=== PATIENT | male | born 1945 | race Caucasian/White ===

== ENCOUNTER → 2017-03-24 | Outpatient (CLI) | payer OTHER ==
[~2017-03-24] MED LIST: ALLO100T PO; BIOT1CAP3 PO; CHOL100010 PO; CLOP1TAB5 PO; SIMV20TA5 PO; TERA5CAP PO
[2017-03-24 12:26] LABS: BASO % 0.6 %; BASO ABS # 0.02 K/uL (0-0.2); COMPLETE YES; EOS % 3.7 %; HEMATOCRIT 39.1 % (42-52); LYMPH % 16.1 %; LYMPH ABS # 0.57 K/uL (1.2-3.4); MEAN CELL VOLUME 95.6 fL (80-100); MEAN CORPUSCULAR HEMOGLOBIN 31.5 pg (25-34); MEAN PLATELET VOLUME 9.7 fL (7.4-10.4); MONO % 9.9 %; NEUT % 69.7 %; PLATELET COUNT 213 K/uL (130-400); RED BLOOD COUNT 4.09 M/uL (4.7-6.1); WHITE BLOOD COUNT 3.55 K/uL (4.8-10.8)
[2017-03-24 13:01] LABS: BLOOD UREA NITROGEN 12 mg/dl (7-18); CALCIUM 8.7 mg/dl (8.5-10.1); CARBON DIOXIDE 32 mmol/L (21-32); CHLORIDE 110 mmol/L (98-107); CREATININE 0.74 mg/dl (0.60-1.40); GLUCOSE 83 mg/dl (70-99); POTASSIUM 4.4 mmol/L (3.5-5.1); SODIUM 144 mmol/L (136-145)
[2017-03-24 13:23] LABS: CHOLESTEROL 134 mg/dl (0-200); CHOLESTEROL/HDL RATIO 2.1; FERRITIN 32.4 ng/ml (8.0-388.0); HDL CHOLESTEROL 65 mg/dl; LDL CHOLESTEROL CALCULATED 61 mg/dl; TOTAL IRON BINDING CAPACITY 302 mcg/dl (250-450); TRIGLYCERIDES 40 mg/dl (0-150); VERY LOW DENSITY LIPOPROT CALC 8 mg/dl
== END | disposition home or self-care (01) ==
LOC: C.LAB 10:21
PROVIDERS: ATTEND Internal Medicine
DX: I73.9 Peripheral vascular disease, unspecified (principal); D64.9 Anemia, unspecified

== ENCOUNTER → 2017-08-27 | Outpatient (CLI) | payer OTHER ==
[2017-08-27 09:40] LABS: HEMATOCRIT 39.5 % (42-52); MEAN CELL VOLUME 95.4 fL (80-100); MEAN CORPUSCULAR HEMOGLOBIN 31.4 pg (25-34); MEAN CORPUSCULAR HGB CONC 32.9 g/dl (32-36); MEAN PLATELET VOLUME 9.8 fL (7.4-10.4); PLATELET COUNT 200 K/uL (130-400); RED BLOOD COUNT 4.14 M/uL (4.7-6.1); WHITE BLOOD COUNT 3.88 K/uL (4.8-10.8)
[2017-08-27 10:06] LABS: ALT/SGPT 23 U/L (12-78); AST/SGOT 18 U/L (15-37); BLOOD UREA NITROGEN 15 mg/dl (7-18); BUN/CREATININE RATIO 22.2 (10-20); CALCIUM 8.6 mg/dl (8.5-10.1); CARBON DIOXIDE 29 mmol/L (21-32); CHLORIDE 109 mmol/L (98-107); CHOLESTEROL 129 mg/dl (0-200); CREATININE 0.65 mg/dl (0.60-1.40); GLUCOSE 89 mg/dl (70-99); POTASSIUM 4.4 mmol/L (3.5-5.1); SODIUM 142 mmol/L (136-145); TRIGLYCERIDES 34 mg/dl (0-150); URIC ACID 4.8 mg/dl (2.6-7.2); VERY LOW DENSITY LIPOPROT CALC 7 mg/dl
[2017-08-27 10:11] LABS: CHOLESTEROL/HDL RATIO 2.2; HDL CHOLESTEROL 59 mg/dl; LDL CHOLESTEROL CALCULATED 63 mg/dl
== END | disposition home or self-care (01) ==
LOC: C.LAB 08:44
PROVIDERS: ATTEND Internal Medicine
DX: D64.9 Anemia, unspecified (principal); E78.5 Hyperlipidemia, unspecified; I10 Essential (primary) hypertension; M10.9 Gout, unspecified; N40.0 Benign prostatic hyperplasia without lower urinary tract symptoms

== ENCOUNTER → 2018-02-15 | Outpatient (CLI) | payer OTHER ==
[2018-02-15 09:40] LABS: HEMATOCRIT 40.3 % (42-52); HEMOGLOBIN 13.6 g/dL (14.0-18.0); MEAN CELL VOLUME 94.4 fL (80-100); MEAN CORPUSCULAR HEMOGLOBIN 31.9 pg (25-34); MEAN CORPUSCULAR HGB CONC 33.7 g/dl (32-36); MEAN PLATELET VOLUME 9.5 fL (7.4-10.4); PLATELET COUNT 194 K/uL (130-400); RED CELL DISTRIBUTION WIDTH CV 13.1 % (11.5-14.5); RED CELL DISTRIBUTION WIDTH SD 45.2 fL (36.4-46.3); WHITE BLOOD COUNT 3.86 K/uL (4.8-10.8)
[2018-02-15 10:24] LABS: ALT/SGPT 23 U/L (12-78); AST/SGOT 17 U/L (15-37); BLOOD UREA NITROGEN 17 mg/dl (7-18); CALCIUM 8.7 mg/dl (8.5-10.1); CARBON DIOXIDE 28 mmol/L (21-32); CREATININE 0.78 mg/dl (0.60-1.40); GLUCOSE 88 mg/dl (70-99); POTASSIUM 4.1 mmol/L (3.5-5.1); SODIUM 142 mmol/L (136-145); URIC ACID 5.2 mg/dl (2.6-7.2)
[2018-02-15 10:29] LABS: CHOLESTEROL 136 mg/dl (0-200); LDL CHOLESTEROL CALCULATED 73 mg/dl
== END | disposition home or self-care (01) ==
LOC: C.LAB 09:11
PROVIDERS: ATTEND Internal Medicine
DX: E78.5 Hyperlipidemia, unspecified (principal); I10 Essential (primary) hypertension; M10.9 Gout, unspecified; D64.9 Anemia, unspecified

== ENCOUNTER 2019-10-28 16:29 | Inpatient (IN) ==
[2019-10-28] MEDS ORDERED: fentaNYL citrate 100 MCG/2 ML VIAL IV STA ×4 (17:08→18:07)
--- NOTE | 2019-10-28 17:17 | XRay Report ---
XR ankle LT min 3V routine, XR foot LT min 3V routine HISTORY: 73 years-old Male trauma acute left foot and ankle pain status post trauma COMPARISON: None available TECHNIQUE: 3 views of the left foot and 3 views of the left ankle FINDINGS: ANKLE: Acute fracture dislocation of the ankle. Obliquely oriented fracture of the distal ulna extends to th e level of the tibial plafond demonstrated medial displacement of the proximal fracture of approximat cristofer 5 mm. There is pathologic widening of the medial clear space of the ankle, 1.4 cm with adjacent 4 mm bone fragment suggestive of avulsion. Osteoarthritis of the tibiotalar joint. No acute talar frac ture identified. Moderate soft tissue swelling of the ankle with joint effusion. Large spurring of th e calcaneus. Arterial calcifications are noted. FOOT: Demineralized appearance the bones with mild to moderate multifocal osteoarthritis. Mild hallux valgu s deformity of the first MTP joint. Flexion of the interphalangeal joints with extension of the metat arsal-phalangeal joints limits the study. Arterial calcifications are noted. No definite acute fractu re or dislocation identified. IMPRESSION: 1. Acute fracture dislocation of the ankle as above with soft tissue swelling and joint effusion. 2. No acute fracture or dislocation of the left foot identified. ACT 112: Negative or not required by law. The above report was generated using voice recognition software. It may contain grammatical, syntax o r spelling errors. Electronically signed by: Jose Alfredo Valentine M.D. 10/28/2019 5:16 PM
--- NOTE | 2019-10-28 17:41 | Emergency Department Note ---
ED Provider Note CHIEF COMPLAINT: Ankle pain HISTORY OF PRESENT ILLNESS: This 73-year-old male patient presents to the emergency department via EMS after sustaining an injury to the left ankle and foot with a twisting, inversion motion prior to arrival. Patient states that he was walking down a hill and slipped on some ice, fell to the side twisting his a nkle and he heard a "crack." He has been unable to put any weight on the ankle or foot since the injury. The ambulance crew did stabilize the ankle and route. The patient complains of pain throughout the entire ankle. The patient does not complain of any pain of the foot. The patient rates the pain as throbbing and 7/10. The patient denies any previous fracture or other injury to this foot or ankle. He denies any knee pain or hip pain. He takes Plavix. He denies hitting his head or loss of consciousness and denies any other injuries from the fall. The pain is worse with any movement of the leg or foot. He is able to move his toes and denies any numbness or tingling in the foot. He denies any lacerations or abrasions to the foot or ankle. He was not given anything for pain prior to arrival. He denies any headaches, neck pain, chest pain, shortness of breath, back pain, abdominal pain, nausea or vomiting. REVIEW OF SYSTEMS: A complete 10 point review of systems was reviewed with the patient with pertinent positives and negatives as per history of present illness. All else were negative. ALLERGIES: Reviewed in chart MEDICATIONS: Reviewed in chart and with the patient PMH: Peripheral artery disease/peripheral vascular disease, hypertension, hyperlipidemia SOCIAL HISTORY: Lives at home with his , he denies tobacco use PHYSICAL EXAM: Vital Signs: Reviewed Nurse's notes, vital signs stable. CONSTITUTIONAL: Pleasant and cooperative. No acute distress. Well appearing and well nourished. HEENT: Normocephalic, atraumatic. PERRL, EOMI. TMs normal. Pharynx normal. NECK: Supple, full active range of motion without discomfort. No midline tenderness to palpation of the cervical spine. RESPIRATORY: Clear to auscultation bilaterally with no wheezing, crackles, rhonchi or stridor. Equal expansion bilaterally. CARDIOVASCULAR: Regular rate and rhythm with no murmurs, rubs or gallops. Normal peripheral perfusion, 2+ pulses in all 4 extremities. No peripheral edema. GASTROINTESTINAL: Soft, nontender, nondistended. No rebound tenderness or guarding. No palpable masses or HSM. Bowel sounds present in all quadrants. No CVA tenderness bilaterally. MUSCULOSKELETAL: The left ankle is moderately and circumferentially swollen, tender over both the lateral and medial malleolus, with obvious bony deformity on the medial aspect of the ankle. There is tension of the skin, but no tenting, no abrasions or lacerations noted. There is fifth metatarsal tenderness. There is no tenderness over the rest of the foot. There is no calf or proximal tibia/fibular tenderness. The foot and toes are warm and well- perfused. Dorsalis pedis and posterior tibialis pulses 2+. Sensation to pain and light touch is intact. Capillary refill less than 2 seconds. Patient is able to move his toes without difficulty. INTEGUMENTARY: No rash or other significant dermatologic conditions noted. NEUROLOGIC: Alert and oriented X 4 with normal affect. Normal strength and sensation in all 4 extremities. Normal speech. Normal gait observed. IMAGING: XR ankle LT min 3V routine, XR foot LT min 3V routine HISTORY: 73 years-old Male trauma acute left foot and ankle pain status post trauma COMPARISON: None available TECHNIQUE: 3 views of the left foot and 3 views of the left ankle FINDINGS: ANKLE: Acute fracture dislocation of the ankle. Obliquely oriented fracture of the distal ulna extends to the level of the tibial plafond demonstrated medial displacement of the proximal fracture of approximately 5 mm. There is pathologic widening of the medial clear space of the ankle, 1.4 cm with adjacent 4 mm bone fragment suggestive of avulsion. Osteoarthritis of the tibiotalar joint. No acute talar fracture identified. Moderate soft tissue swelling of the ankle with joint effusion. Large spurring of the calcaneus. Arterial calcifications are noted. FOOT: Demineralized appearance the bones with mild to moderate multifocal osteoarthritis. Mild hallux valgus deformity of the first MTP joint. Flexion of the interphalangeal joints with extension of the metatarsal-phalangeal joints limits the study. Arterial calcifications are noted. No definite acute fracture or dislocation identified. IMPRESSION: 1. Acute fracture dislocation of the ankle as above with soft tissue swelling and joint effusion. 2. No acute fracture or dislocation of the left foot identified. ----- XR ankle LT 2V CLINICAL HISTORY: 73 years-old Male presenting with post reduction. TECHNIQUE: Frontal and lateral views of the left ankle were obtained. COMPARISON: 10/28/2019 at 4:48 PM. FINDINGS: Interval placement of a fiberglass splint, which mildly obscures underlying os seous detail. Redemonstration of the fracture dislocation of the ankle mortise with obliquely oriented fracture of the distal fibula at the level of the syndesmosis extending from the posterior cortex proximally to the anterior cortex distally, posterior malleolar fracture, and medial ligamentous di sruption. Medial clear space widening of 10 mm is decreased from prior, previously 14 mm. Mild displacement of the distal fibular fracture fragment is similar to prior. There is greater diastases of the distal fibular fracture plane on the current exam, which was previously minimal. There is also slightly increased displacement of the posterior malleolar fracture. Decreased widening at the anterior tibiotalar articulation. Prominent enthesophytes at the insertion of the Achilles tendon and origin of the plantar fascia. Diffuse soft tissue swelling. Atherosclerosis. IMPRESSION: 1. Decreased widening of the medial clear space and anterior tibiotalar articulation. However, increased diastases at the distal fibular fracture plane and mild displacement of the posterior malleolar fracture. PROCEDURE NOTE: Left ankle reduction Verbal consent was obtained from the patient to perform the procedure. The left foot is neurovascularly intact prior to reduction attempts. The left ankle joint was reduced by myself by applying distal traction on the ankle joint with countertraction, and gentle lateral pressure. The ankle joint easily reduces, but also easily moves out of place as soon as any pressure is removed, concerning for an unstable fracture/dislocation. Patient continues to be able to move his toes after the reduction attempt. Neurovascular status was rechecked and remains intact. A stirrup Ortho-Glass splint was placed to stabilize the ankle. Post-reduction X-ray was reviewed by myself at bedside, noting some improvement in the alignment of the ankle joint, but worsening alignment of the distal fibula fracture. Pt tolerated the procedure well with no known complications. EMERGENCY DEPARTMENT COURSE: I examined the patient. Differential diagnosis includes ankle fracture, dislocation, contusion, hematoma, sprain/strain, among others. The patient was given IV fentanyl for pain. X-rays of the left foot and ankle were reviewed by myself at bedside and were also read by radiology as above and reveal an acute fracture and dislocation of the left ankle. The pham ent was discussed with Dr. Philip, who also evaluated the patient and agrees with my assessment, plan, and disposition. I discussed the option of sedation with the patient, he prefers to avoid this. His pain has been adequately controlled with IV fentanyl. A reduction attempt was performed as above, however I am concerned for an unstable fracture/dislocation, and was unable to obtain good reduction myself. I spoke on the phone with Dr. Hanson, orthopedic surgery, who agrees to evaluate the patient and is performing reduction at the bedside. Please see his note for further details. After evaluation by Dr. Hanson, decision was made that the patient should be admitted with plans for OR tomorrow. Dr. [facility] was also consulted on the patient. The patient was updated on the plan for admission and surgery, he was agreeable to this plan. His pain is adequately controlled at this time. He was stable at time of admission. Medication Reconciliation: I attest that I have personally reviewed the patient's current medication list. Blood pressure screening: The patient was found to have an elevated blood pressure, which was felt to be situational. The chart was completed utilizing [employer] Speech voice recognition software. Grammatical errors, random word insertions, pronoun errors, and incomplete sentences are an occasional consequence of this system due to software limitations, ambient noise, and hardware issues. Any formal questions or concerns about the content, text, or information contained within the body of this dictation should be directly addressed to the nurse practitioner for clarification. Impression & Plan Closed left ankle fracture Past Med/Surg History Medical History Cardiac murmur Closed left ankle fracture History of colon polyps Hyperlipidemia Hypertension On anticoagulant therapy on plavix PAD (peripheral artery disease) Sleep apnea cpap Surgical History History of angioplasty left SFA (per record from [facility]) History of colonoscopy History of esophagogastroduodenoscopy (EGD) History of tooth extraction wisdom teeth Status post femoral-popliteal bypass surgery 2013 bilateral @ [place] Family History Mother Family hx of colon cancer Lung disease Colon cancer Brother Diabetes Father Myocardial infarction Aunt Myocardial infarction Uncle Myocardial infarction Social History Preferred Language: Korean Communication Ability: Effective Platform Worker Required: No Beliefs That Will Affect Care: None marital status: Current Living Situation: Spouse current occupational status: employed Feels Safe at Home: Yes Smoking Status: Former smoker Second Hand Exposure: No ; Hx Alcohol Use: Yes Alcohol type: beer Hx Substance Use: No Seatbelt Use: always Results & Data Vital Signs Vital Signs - 24 hr 10/28/19 16:35 10/28/19 17:39 Temperature 36.8 C Temperature Source Oral Pulse Rate 86 Pulse Rate [Left Finger] 80 Pulse Rhythm Regular Pulse Strength Normal Respiratory Rate 24 18 Respiratory Effort / Characteristics Non-Labored Respiratory Depth Normal Respiratory Pattern Regular Blood Pressure 203/98 H Blood Pressure [Right Arm] 183/106 H Blood Pressure Mean 133 Blood Pressure Mean [Right Arm] 131 Blood Pressure Position Lying Pulse Oximetry 99 96 Oxygen Delivery Method Room Air Room Air Sepsis Recent Fever Within 48 Hours No Sepsis Action Taken by Nursing No Action Required Laboratory Data Result diagrams: 10/28/19 17:03 10/28/19 17:03 Lab Results 10/28/19 10/28/19 Range/Units 17:03 17:03 WBC 4.85 (4.8-10.8) K/uL RBC 4.39 L (4.7-6.1) M/uL Hgb 13.8 L (14.0-18.0) g/dL Hct 41.8 L (42-52) % MCV 95.2 (80-100) fL MCH 31.4 (25-34) pg MCHC 33.0 (32-36) g/dL RDW Std Deviation 46.8 H (36.4-46.3) fL RDW Coeff of Cesario 13.4 (11.5-14.5) % Plt Count 215 (130-400) K/uL MPV 9.8 (7.4-10.4) fL Sodium 141 (136-145) mmol/L Potassium 4.2 (3.5-5.1) mmol/L Chloride 110 H (98-107) mmol/L Carbon Dioxide 32 (21-32) mmol/L Anion Gap -1.0 L (3-11) BUN 16 (7-18) mg/dl Creatinine 0.86 (0.6-1.4) mg/dl Est Cr Clr Drug Dosing 84.4 ml/min Est GFR ( Amer) 98.3 Est GFR (Non-Af Amer) 84.8 BUN/Creatinine Ratio 19.0 (10-20) Glucose 96 (70-99) mg/dl Calcium 8.7 (8.5-10.1) mg/dl Administered Medications Docusate Sodium (Colace) 100 mg PO BID ERYN Stop: 11/27/19 20:59 Last Admin: 10/28/19 21:25 Dose: 100 mg Documented by: [id number] Simvastatin (Zocor) 10 mg PO PM ERYN Stop: 11/27/19 20:59 Last Admin: 10/28/19 21:26 Dose: 10 mg Documented by: [id number] Terazosin HCl (Hytrin) 5 mg PO QPM ERYN Stop: 11/27/19 20:59 Last Admin: 10/28/19 21:26 Dose: 5 mg Documented by: [id number] Vitamin D (Vitamin D3) 1,000 units PO BID ERYN Stop: 11/27/19 20:59 Last Admin: 10/28/19 21:25 Dose: 1,000 units Documented by: [id number] Discontinued Medications Fentanyl Citrate (Fentanyl Citrate) 50 mcg IV NOW STA Stop: 10/28/19 17:09 Last Admin: 10/28/19 17:10 Dose: 50 mcg Documented by: [id number] Fentanyl Citrate (Fentanyl Citrate) 50 mcg IV NOW STA Stop: 10/28/19 17:32 Last Admin: 10/28/19 17:33 Dose: 50 mcg Documented by: [id number] Fentanyl Citrate (Fentanyl Citrate) 50 mcg IV NOW STA Stop: 10/28/19 17:33 Last Admin: 10/28/19 17:34 Dose: Not Given Documented by: [id number] Fentanyl Citrate (Fentanyl Citrate) 50 mcg IV NOW STA Stop: 10/28/19 18:08 Last Admin: 10/28/19 18:12 Dose: 50 mcg Documented by: [id number] Discharge Plan Visit Data *Final* Discharge Date/Time: 10/28/19 20:09 Chief Complaint: Ankle Pain Stated Complaint: FALL, ANKLE PAIN ED Provider: Fausto Philip ED Midlevel Provider: Madeleine Milton Discharge Problem: Closed left ankle fracture Patient Disposition: Admitted As Inpatient Condition: Good Discharge Instructions Interventions: ED Discharge Assessment Last Done: 10/28/19 20:09
--- NOTE | 2019-10-28 17:45 | XRay Report ---
XR ankle LT 2V CLINICAL HISTORY: 73 years-old Male presenting with post reduction. TECHNIQUE: Frontal and lateral views of the left ankle were obtained. COMPARISON: 10/28/2019 at 4:48 PM. FINDINGS: Interval placement of a fiberglass splint, which mildly obscures underlying osseous detail. Redemonst ration of the fracture dislocation of the ankle mortise with obliquely oriented fracture of the dista l fibula at the level of the syndesmosis extending from the posterior cortex proximally to the anteri or cortex distally, posterior malleolar fracture, and medial ligamentous disruption. Medial clear spa ce widening of 10 mm is decreased from prior, previously 14 mm. Mild displacement of the distal fibul ar fracture fragment is similar to prior. There is greater diastases of the distal fibular fracture p gino on the current exam, which was previously minimal. There is also slightly increased displacement of the posterior malleolar fracture. Decreased widening at the anterior tibiotalar articulation. Pro minent enthesophytes at the insertion of the Achilles tendon and origin of the plantar fascia. Diffus e soft tissue swelling. Atherosclerosis. IMPRESSION: 1. Decreased widening of the medial clear space and anterior tibiotalar articulation. However, incre ased diastases at the distal fibular fracture plane and mild displacement of the posterior malleolar fracture. ACT 112: Negative or not required by law. Electronically signed by: Guy Lamas M.D. 10/28/2019 5:43 PM
--- NOTE | 2019-10-28 18:36 | History & Physical Report ---
Date of Service October 28, 2019 Assessment & Plan (1) Closed left ankle fracture: Reduction in ER. Admit to Hospital overnight. To OR in AM for ORIF. History of Present Illness Chief Complaint: Left Ankle Injury Primary Care Provider: Jung Gaona MD Fell going down hill to feed neighbors chickens. Acute ankle pain and deformity. No other injuries. Allergies Allergy/AdvReac Type Severity Reaction Status Date / Time latex AdvReac Rash Unverified 10/28/19 17:53 Home Medications Home Medications Medication Instructions Recorded Confirmed Type allopurinol 100 mg PO QAM 10/15/18 10/28/19 History biotin 1 tab PO QAM 10/15/18 10/28/19 History cholecalciferol (vitamin D3) 1,000 unit PO BID 10/15/18 10/28/19 History [Vitamin D3] simvastatin 10 mg tablet 10 mg PO PM #90 tab 07/28/19 10/28/19 Rx clopidogrel 75 mg tablet 75 mg PO QAM #90 tab 08/23/19 10/28/19 Rx terazosin 5 mg capsule 5 mg PO QPM #90 cap 09/23/19 10/28/19 Rx Past Med/Surg History Medical History (Updated 10/28/19 @ 18:35 by Serjio Hanson MD) Cardiac murmur Closed left ankle fracture History of colon polyps Hyperlipidemia Hypertension On anticoagulant therapy on plavix PAD (peripheral artery disease) Sleep apnea cpap Surgical History History of angioplasty left SFA (per record from [facility] [place]) History of colonoscopy History of esophagogastroduodenoscopy (EGD) History of tooth extraction wisdom teeth Status post femoral-popliteal bypass surgery 2012 bilateral @ [facility] [place] Family History Mother Family hx of colon cancer Lung disease Colon cancer Brother Diabetes Father Myocardial infarction Aunt Myocardial infarction Uncle Myocardial infarction Social History Preferred Language: Greek Communication Ability: Effective Docket Specialist Required: No Beliefs That Will Affect Care: None marital status: Current Living Situation: Spouse current occupational status: employed Feels Safe at Home: Yes Smoking Status: Former smoker Second Hand Exposure: Yes (parents smoked) ; Hx Alcohol Use: Yes Alcohol type: beer Hx Substance Use: No Seatbelt Use: always Review of Systems All systems reviewed & are unremarkable except as noted in HPI & below Physical Exam Constitutional: WD/WN, vitals as above Eyes: PERRL, conjunctivae normal, anicteric sclerae ENMT: external ear and nose normal, oropharynx normal Neck: trachea midline, no thyromegaly Respiratory: normal respiratory effort, lungs clear to auscultation Cardiovascular: RRR, no murmur, no edema Gastrointestinal (Abdomen): normal bowel sounds, soft, nontender, no hepatosplenomegaly Musculoskeletal: Left Ankle deformity. Skin Intact. N/V Intact. Skin: no rashes, warm and dry Neurologic: patellar DTR's 2+ bilat, sensation intact Results & Data Vital Signs (Past 12 Hours) Vital Signs Temp Pulse Pulse Resp BP BP Pulse Ox 10/28/19 17:39 80 18 183/106 H 96 10/28/19 16:35 36.8 C 86 24 203/98 H 99
--- NOTE | 2019-10-28 19:28 | XRay Report ---
XR ankle LT 2V HISTORY: 73 years-old Male post-reduction acute fracture of the left ankle. Status post reduction COMPARISON: Left ankle radiographs of same day at 5:21 PM TECHNIQUE: 2 views of the left ankle FINDINGS: Acute lateral posterior malleoli tibial fractures are redemonstrated. There is persistent mild medial clear space widening, now 4 mm and previously 10 mm. Unchanged 4 mm lateral displacement of the dist al fibula. The posterior malleolar fracture fragment is displaced posteriorly approximately 3 mm. Fin e bony detail is limited secondary to overlying casting material. IMPRESSION: 1. Status post reduction and casting with improved tibiotalar alignment as above. 2. Acute mildly displaced distal fibular and posterior malleolar fractures redemonstrated. ACT 112: Negative or not required by law. The above report was generated using voice recognition software. It may contain grammatical, syntax o r spelling errors. Electronically signed by: Jose Alfredo Valentine M.D. 10/28/2019 7:27 PM
--- NOTE | 2019-10-28 19:30 | XRay Report ---
XR chest 2V PA/lateral HISTORY: 73 years-old Male pre-op preoperative exam. No acute chest complaints COMPARISON: Chest CT 11/07/2016, chest radiograph 11/04/2013 TECHNIQUE: AP and lateral views of the chest FINDINGS: Scattered calcified granulomata of the left lung. Cardiac silhouette is upper limits of normal in siz e. Calcified plaque of the thoracic aortic arch. No pneumothorax, pleural effusion or overt pulmonary edema. Ill-defined right lung base opacity with tenting of the right hemidiaphragm is unchanged. Mil d linear subsegmental right basilar atelectasis/scarring. Mild chronic interstitial coarsening. Mild hyperinflation with diaphragmatic flattening. Degenerative changes of the shoulders and spine. IMPRESSION: Chronic findings as above without acute process. ACT 112: Negative or not required by law. The above report was generated using voice recognition software. It may contain grammatical, syntax o r spelling errors. Electronically signed by: Jose Alfredo Valentine M.D. 10/28/2019 7:29 PM
--- NOTE | 2019-10-28 19:38 | Emergency Department Note ---
ED Visit Note I have personally seen and evaluated the patient with the physician healthcare administrative assistant. I agree with the diagnostic/management decisions and have personally been involved in these decisions and agree with the diagnosis. The patient was going up a hill and slipped causing a fracture to his left leg. He was splinted. He is neurovascularly intact after splinting .
[2019-10-28 19:47] LABS: Hematocrit (blood only) 41.8 % (42-52); Hemoglobin 13.8 g/dL (14.0-18.0); Mean Corpuscular Hemoglobin 31.4 pg (25-34); Mean Corpuscular Volume 95.2 fL (80-100); Mean Platelet Volume 9.8 fL (7.4-10.4); Platelet Count 215 K/uL (130-400); RDW Coefficient of Variation 13.4 % (11.5-14.5); RDW Standard Deviation 46.8 fL (36.4-46.3); Red Blood Count 4.39 M/uL (4.7-6.1); White Blood Count 4.85 K/uL (4.8-10.8)
--- NOTE | 2019-10-28 19:49 | Hospitalist Consultation ---
Date of Consultation October 28, 2019 Assessment & Plan (1) Closed left ankle fracture: Patient is admitted to orthopedic service of Dr. Serjio Hanson. Plan to have ORIF in a.m. N.p.o. after midnight Pain management as per Ortho DVT prophylaxis SCDs and teds Continue vitamin D3, and biotin 1 tablet p.o. every morning. Full code Present on Admission?: Yes (2) Sleep apnea: Continue CPAP. Patient continues his own from his home. Present on Admission?: Yes (3) PAD (peripheral artery disease): Hold clopidogrel 75 mg p.o. every morning because patient will undergo procedure. Resume when orthopedics are comfortable status post procedure. Present on Admission?: Yes (4) Hyperlipidemia: Lipid panel pending. Continue simvastatin 10 mg p.o. every afternoon. Present on Admission?: Yes (5) Hypertension: Peers to be stable. Continue Terazosin 5 mg p.o. every afternoon. Present on Admission?: Yes (6) Gout: Stable. Continue allopurinol 100 mg p.o. every morning. Present on Admission?: Yes History of Present Illness Reason for Consultation: Medical management Requesting Physician: Valentin Bassett History of Present Illness Patient is a 73 years old male with past medical history of hypertension, hyperlipidemia peripheral artery disease, sleep apnea who presents to the emergency room s/p fall with closed left ankle fracture. Patient is admitted at Dr. Hanson's service orthopedics and will have procedure of ORIF in a.m. Dr. Hanson stabilized close left ankle fracture while patient was in the ER. Patient denies fever, chills, chest pain, shortness of breath, abdominal pain, frequency, urgency. Labs are reviewed: WBCs 4.85, hemoglobin 13.8, hematocrit 41.8, platelets 215, sodium 141, potassium 4.2 chloride 110, BUN 16, GFR 84.8. X-rays of the left foot shows acute fracture dislocation of the ankle as above with soft tissue swelling and joint effusion. No acute fracture or dislocation of the left foot identified. Chest x-ray shows chronic findings such as scattered calcified granuloma of the left lung. Mild interstitial coarsening. Mild hyperinflation with diaphragmatic flattening. Degenerative changes of the shoulders and spine. Allergies Allergy/AdvReac Type Severity Reaction Status Date / Time latex AdvReac Rash Unverified 10/28/19 17:53 Home Medications Home Medications Medication Instructions Recorded Confirmed Type allopurinol 100 mg PO QAM 10/15/18 10/28/19 History biotin 1 tab PO QAM 10/15/18 10/28/19 History cholecalciferol (vitamin D3) 1,000 unit PO BID 10/15/18 10/28/19 History [Vitamin D3] simvastatin 10 mg tablet 10 mg PO PM #90 tab 07/28/19 10/28/19 Rx clopidogrel 75 mg tablet 75 mg PO QAM #90 tab 08/23/19 10/28/19 Rx terazosin 5 mg capsule 5 mg PO QPM #90 cap 09/23/19 10/28/19 Rx Patient History Medical History Cardiac murmur Closed left ankle fracture History of colon polyps Hyperlipidemia Hypertension On anticoagulant therapy on plavix PAD (peripheral artery disease) Sleep apnea cpap Surgical History History of [place]oplasty left [place] [facility] History of colonoscopy History of esophagogastroduodenoscopy (EGD) History of tooth extraction wisdom teeth Status post femoral-popliteal bypass surgery 2013 bilateral [place] [facility] Family History Mother Family hx of colon cancer Lung disease Colon cancer Brother Diabetes Father Myocardial infarction Aunt Myocardial infarction Uncle Myocardial infarction Social History Preferred Language: [place] Communication Ability: Effective 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 Beliefs That Will Affect Care: None marital status: Current Living Situation: Spouse current occupational status: employed Other Information That Helps Us Care for You: No Feels Safe at Home: Yes Safety Concerns: Feels Safe At This Time Smoking Status: Former smoker Do You Dip or Chew Tobacco: No ; Second Hand Exposure: No ; Tobacco Cessation Education Requested by Patient: No Hx Alcohol Use: Yes Alcohol type: beer Hx Substance Use: No Seatbelt Use: always Review of Systems Review of Systems: All systems reviewed & are unremarkable except as noted in HPI & below Physical Exam Constitutional: WD/WN, vitals as above well developed and + morbidly obese Eyes: PERRL, conjunctivae normal, anicteric sclerae ENMT: external ear and nose normal, oropharynx normal Neck: trachea midline, no thyromegaly Respiratory: normal respiratory effort, lungs clear to auscultation Cardiovascular: Heart Sounds: normal S1, normal S2 and + murmur Vessels: dorsalis pedis pulses present Gastrointestinal (Abdomen): normal bowel sounds, soft, nontender, no hepatosplenomegaly Musculoskeletal: no cyanosis or clubbing, extremities motor strength 5/5 Skin: no rashes, warm and dry Neurologic: patellar DTR's 2+ bilat, sensation intact Psychiatric: A+Ox3, euthymic affect Lymphatic: no cervical or axillary lymphadenopathy Results & Data Vital Signs (Past 12 Hours) Vital Signs Temp Pulse Pulse Resp BP BP Pulse Ox 10/28/19 17:39 80 18 183/106 H 96 10/28/19 16:35 36.8 C 86 24 203/98 H 99 PG Care Time/CCT Total # of Minutes Spent Total Time Spent with Patient: Total time spent is greater than 50% in coordination of care (as documented) at patient's floor/unit and/or counseling patient:
[2019-10-28 19:54] LABS: Calcium 8.7 mg/dl (8.5-10.1); Creatinine Clr Calc Pharmacy 84.4 ml/min; Est GFR (African American) 98.3; Est GFR (Non-African American) 84.8; Potassium 4.2 mmol/L (3.5-5.1)
[2019-10-28] MEDS ORDERED: OXYCODONE/ACETAMINOPHEN 5mg/325mg TAB PO PRN (20:09)
[2019-10-28] MEDS ORDERED: ONDANSETRON INJ 2 MG/ML 2 ML VIAL IV PRN (20:09)
[2019-10-28] MEDS ORDERED: MAGNESIUM HYDROXIDE SUSP 30 ML UDC PO PRN (20:09)
[2019-10-28] MEDS ORDERED: ALUMINUM/MAGNESIUM SUSP 30 ML UDC PO PRN (20:09)
[2019-10-28] MEDS ORDERED: ACETAMINOPHEN 325 MG TAB PO PRN (20:09)
[2019-10-28] MEDS ORDERED: METOCLOPRAMIDE HCL INJ 5 MG/ML 2 ML VIAL IV PRN (20:09)
--- NOTE | 2019-10-28 20:41 | History and Physical Report ---
DATE OF ADMISSION: 10/28/2019 CHIEF COMPLAINT: Left ankle injury. HISTORY OF PRESENT ILLNESS: A 73-year-old very healthy, active gentleman who sustained an injury to his ankle this afternoon around 4:00. He was apparently descending a hill when he is going over to the neighbors to feed to chickens. He slipped and fell and had acute onset of pain, deformity to his ankle. He was brought to the Emergency Room where x-rays revealed an ankle fracture. We were consulted for management. He had attempted closed reduction in the ER which was not successful. No other injuries. No other complaints. PAST MEDICAL HISTORY: Significant for: 1. Peripheral vascular disease status post bilateral lower extremity grafting/bypass done at [facility] in 2013. 2. Colon polyps. 3. Elevated cholesterol. 4. Hypertension. 5. Sleep apnea. PAST SURGICAL HISTORY: Include: 1. Bilateral lower extremity grafting done in 2013 at [facility]. 2. Unspecified surgery, removal of a growth on his voice box. ALLERGIES: LATEX. CURRENT MEDICATIONS: Include: 1. Allopurinol. 2. Biotin. 3. Vitamin D3. 4. Simvastatin. 5. Plavix. 6. Terazosin. SOCIAL HISTORY: A 73-year-old male. He is retired. Still works part-time. Does not smoke. FAMILY HISTORY: Noncontributory. REVIEW OF HISTORY: Negative for diabetes, neurologic problem, vascular problem, bleeding disorders. Denies any current chest pain or shortness of breath. Denies any cardiac history. PHYSICAL EXAMINATION: GENERAL: Shows a pleasant, elderly male. He is lying in bed, looks quite comfortable. VITAL SIGNS: Temperature is 36.8. Vital signs are stable. He is hypertensive with blood pressure 183/106. HEENT: Benign. NECK: Supple, no lymphadenopathy. LUNGS: Clear to auscultation. HEART: Has regular rate and rhythm. ABDOMEN: Soft, nontender, nondistended. EXTREMITIES: Grossly neurovascularly intact except as follows. Examination of the left ankle reveals an obvious deformity with ankle subluxated posteriorly and laterally. The skin is intact. There is no tenting of the skin. He has got no knee effusion. He is neurologically intact. X-RAYS: X-rays of the left ankle reviewed. Shows left ankle fracture subluxation with a posterolateral subluxation of the ankle joint. He has got a fibular fracture and a posterior malleolus fracture. No major medial malleolar fragment. ASSESSMENT: A 73-year-old male with a left trimalleolar ankle fracture subluxation equivalent. PLAN: We are going to do a closed reduction in the ER. We are going to splint him overnight and fix this tomorrow. The risks and benefits of ORIF in left ankle fracture were explained to the patient including but not limited to DVT, PE, , infection, neurological injury, vascular injury, bleeding problem, pain, limited range of motion, stiffness, failure to relieve symptoms, incomplete relief of symptoms, need for further surgery in future, nonunion, malunion, infection, etc. The patient understands and desires to proceed. Informed consent was obtained. We will hold his Plavix preoperatively and will put him on Plavix postoperatively for DVT prophylaxis. PROCEDURE: The patient's leg was placed over the edge of the table. I did a closed reduction. A short leg plaster cast was applied and then it was split. Post-reduction films are pending.
[2019-10-28] MEDS: CHOLECALCIFEROL 1,000 UNITS TAB PO SCH (21:25)
[2019-10-28] MEDS: DOCUSATE SODIUM 100 MG CAP PO SCH (21:25)
[2019-10-28] MEDS: SIMVASTATIN 10 MG TAB PO SCH (21:26)
[2019-10-28] MEDS: TERAZOSIN HCL 5 MG CAP PO SCH (21:26)
[2019-10-29] MEDS ORDERED: CEFAZOLIN 2000MG 2,000 MG/15 ML SYR IV SCH (06:00)
[2019-10-29] MEDS ORDERED: ONDANSETRON INJ 2 MG/ML 2 ML VIAL ONE (06:58)
[2019-10-29] MEDS ORDERED: fentaNYL citrate 100 MCG/2 ML VIAL ONE ×2 (06:58→10:09)
[2019-10-29] MEDS ORDERED: DEXAMETHASONE SOD INJ 4 MG/ML VIAL ONE (06:58)
[2019-10-29] MEDS ORDERED: PROPOFOL IV EMULSION 10 MG/ML 20 ML VIAL IV ONE (06:58)
[2019-10-29] MEDS ORDERED: LIDOCAINE HCL 2% 2 ML VIAL/AMP(20MG/ML) INFIL ONE (06:58)
[2019-10-29] MEDS ORDERED: BUPIVACAINE/EPINEPHRINE 0.5% MPF 1:200,000 10 ML VIAL ONE (07:21)
--- NOTE | 2019-10-29 07:37 | History & Physical Bridge Note ---
Date of Service October 29, 2019 History & Physical Bridge Note I have examined the patient, reviewed the History & Physical and in the interval since the performance of the History & Physical I have noted the following changes of clinical significance: no changes noted
--- NOTE | 2019-10-29 08:07 | Anesthesiology Consultation ---
Date of Service October 29, 2019 Assessment & Plan Chart Review Chart Review: Acceptable Risk for Surgery Consults Requested none History Surgery Operation Date: 10/29/19 09:00 Proposed Procedures p Open Reduction Internal Fixation Ankle - Serjio Hanson MD Height/Weight Height: 5 ft 8 in Weight: 97.551 kg Allergies Allergy/AdvReac Type Severity Reaction Status Date / Time latex AdvReac Rash Unverified 10/28/19 17:53 Medications Home Medications Medication Instructions Recorded Confirmed Last Taken allopurinol 100 mg PO QAM 10/15/18 10/28/19 10/28/19 biotin 1 tab PO QAM 10/15/18 10/28/19 10/28/19 cholecalciferol (vitamin D3) 1,000 unit PO BID 10/15/18 10/28/19 10/28/19 [Vitamin D3] simvastatin 10 mg tablet 10 mg PO PM #90 tab 07/28/19 10/28/19 10/27/19 clopidogrel 75 mg tablet 75 mg PO QAM #90 tab 08/23/19 10/28/19 10/28/19 terazosin 5 mg capsule 5 mg PO QPM #90 cap 09/23/19 10/28/19 10/27/19 Active Medications Generic Name Dose Route Start Last Admin Trade Name Freq PRN Reason Stop Dose Admin Docusate Sodium 100 mg 10/28/19 21:00 10/28/19 21:25 Colace PO 11/27/19 20:59 100 mg BID ERYN Administration Oxycodone/Acetaminophen 1 - 2 tab 10/28/19 20:09 10/29/19 01:27 Percocet 5mg/325mg PO 11/11/19 20:08 2 tab Q4H PRN Administration Pain Simvastatin 10 mg 10/28/19 21:00 10/28/19 21:26 Zocor PO 11/27/19 20:59 10 mg PM ERYN Administration Terazosin HCl 5 mg 10/28/19 21:00 10/28/19 21:26 Hytrin PO 11/27/19 20:59 5 mg QPM ERYN Administration Vitamin D 1,000 units 10/28/19 21:00 10/28/19 21:25 Vitamin D3 PO 11/27/19 20:59 1,000 units BID ERYN Administration NPO Date Last Intake of Fluids: 12/21/19 Time Last Intake of Fluids: 23:01 Date Last Intake of Solids: 10/29/19 Time Last Intake of Solids: 23:01 Past Medical History Medical History Cardiac murmur Closed left ankle fracture (Acute) History of colon polyps Hyperlipidemia Hypertension On anticoagulant therapy on plavix PAD (peripheral artery disease) Sleep apnea cpap Past Family History Family History Mother Family hx of colon cancer Lung disease Colon cancer Brother Diabetes Father Myocardial infarction Aunt Myocardial infarction Uncle Myocardial infarction Past Surgical History Surgical History History of angioplasty left SFA (per record from [facility] [place] History of colonoscopy History of esophagogastroduodenoscopy (EGD) History of tooth extraction wisdom teeth Status post femoral-popliteal bypass surgery 2013 bilateral @ [facility] [place] Social History Smoking Status: Former smoker Do You Dip or Chew Tobacco: No Hx Alcohol Use: Yes Alcohol type: beer alcohol intake frequency: 0-2 drinks per day Hx Substance Use: No substance use type: does not use Physical Exam Vital Signs Last Vital Signs Temp 36.6 C 10/29/19 07:13 Pulse 76 10/29/19 07:13 Resp 18 10/29/19 07:13 BP 138/51 L 10/29/19 07:13 Pulse Ox 94 10/29/19 07:13 Testing Laboratory Results 10/28/19 17:03 10/28/19 17:03
[2019-10-29] MEDS ORDERED: SODIUM CHLORIDE 0.9% INJ 10 ML VIAL ONE (08:23)
[2019-10-29] MEDS ORDERED: CEFAZOLIN 250 MG/ML 1 GM VIAL ONE (08:23)
[2019-10-29] MEDS ORDERED: NON-FORMULARY MEDICATION (Biotin 1 TAB) PO SCH (09:00)
--- NOTE | 2019-10-29 09:55 | Fluoroscopy Report ---
FL ankle LT min 3V RTN CLINICAL HISTORY: 73 years-old Male presenting with ORIF LEFT ANKLE FX. TECHNIQUE: 5 fluoroscopic image(s) recorded as part of an intraoperative procedure. COMPARISON: Plain radiographs from yesterday. FINDINGS/IMPRESSION: Cortical compression plate and screw fixation of the distal fibula. Ankle mortise now appears congrue nt. Please see surgical report for further details. Fluoroscopy dosage (mGy): 0.56. Fluoroscopy time: 17.1 seconds. Number or time of high level fluoroscopy (HLF), digital spot, or digital subtraction images: 0. ACT 112: Negative or not required by law. Electronically signed by: Guy Lamas M.D. 10/29/2019 9:53 AM
--- NOTE | 2019-10-29 09:57 | Operative Report ---
Post Operative Report Pre & Post Diagnosis Operation Date: 10/29/19 09:00 Pre-Op Diagnosis: LEFT UNSTABLE BRANDON B TRIMALLEOLAR ANKLE FRACTURE Post-Op Diagnosis: LEFT UNSTABLE BRANDON B TRIMALLEOLAR ANKLE FRACTURE I identified the patient and participated in the time-out.: Yes Procedure Operation Date: 10/29/19 09:00 Actual Procedures p Open Reduction Internal Fixation Ankle(Left) - Serjio Hanson MD Surgeon Serjio Hanson MD Manager Of Change Cierra, PAC Estimated Blood Loss 20 Findings Consistent with Post-Op Diagnosis Fluids 1100 cc Specimens None. Drains None. Anesthesia Type General Complications none Disposition Accompanied Patient To Recovery: Yes Disposition: Recovery Room Indications Patient is a very healthy 73-year-old gentleman who sustained an injury to his left ankle last evening. He was apparently walking down a hill to the neighbors to feed the chickens when he fell. He had acute onset of pain and deformity to his ankle. Brought to emergency room where x-rays ruled ankle fracture subluxation/dislocation. Patient is indicated for surgical treatment. Description of Procedure Operative implants consist of: 1. 10 hole Synthes one third semitubular plate. 2. 4.0 partially-threaded cancellus screw x1. 3. 4.0 fully threaded cancellus screws x2. 4. 3.5 fully threaded cortical screws x5. 5. 3.5 cortical locking screw x1. Patient was taken to the operating room identified and placed on the operating table supine position. A contractors were properly padded. IV antibiotics arrived by anesthesia team. A general anesthetic was implemented. A left eye turn was then placed. The left lower extremity splint was then removed and the left foot and ankle were then scrubbed with Hibiclens and then prepped with ChloraPrep and draped in usual sterile fashion. The left leg was elevated exsanguinated Esmarch and turns placed at 300 mmHg. Direct lateral approach to the fibula was then performed to longitudinal incision. Sharp lysis got through subcutaneous tissue down below the fracture. I exposed the fracture. I would open the fracture site up and debrided of all blood clot. I irrigated the wound. I then pulled some longitudinal traction to the distal fibula and anatomically reduced and held with 2 reduction clamps. I then placed a single 4.0 partially-threaded cancellus screw in a lag fashion across the fracture site. This anatomically aligned the fracture. I then contoured a 10 hole one third semitubular plate to the posterior lateral aspect of the fibula. It was fixed proximally with 5 x 3.5 fully threaded cortical screws and distally with to 4.0 fully threaded cancellus screws and one 3.5 cortical locking screw. X-ray was then brought in. I stressed the ankle and there is no gapping of the medial clear space. We did not need to place a syndesmosis screw. I then irrigated the wound extensively. I injected locally with 30 cc of half percent Marcaine with epinephrine. The periosteum of the plate was then closed with 2-0 Vicryl suture in a [id number] fashion for the check was then let down for turn time 40 minutes but hemostasis assured with electrocautery. The wound was once again irrigated. Subcutaneous tissue then closed with with 2-0 Vicryl suture in a buried interrupted fashion skin was closed with 3-0 nylon suture in a simple fashion. Leg was then cleaned dried a sterile dressing composed of Xeroform, 4 x 4's, sterile cast padding and a well- padded posterior and stirrup splint were applied. The patient then transferred to the recovery room in stable condition. The patient tolerated the procedure well there are no complications. I attest to the content of the Intraoperative Record and any orders documented therein. Any exceptions are noted below.
[2019-10-29] MEDS ORDERED: ONDANSETRON INJ 2 MG/ML 2 ML VIAL IV PRN ×2 (10:05→11:01)
[2019-10-29] MEDS ORDERED: ePHEDrine sulfate 50 MG/ML AMP IV PRN (10:05)
[2019-10-29] MEDS ORDERED: PROMETHAZINE HCL 12.5 MG in SODIUM CHLORIDE 0.9% 50 ML IV PRN (10:05)
[2019-10-29] MEDS ORDERED: METOCLOPRAMIDE HCL INJ 5 MG/ML 2 ML VIAL IV PRN ×2 (10:05→11:01)
[2019-10-29] MEDS ORDERED: HYDROmorphone INJ 2 MG/ML SYR/VIAL IV PRN (10:05)
[2019-10-29] MEDS ORDERED: ATROPINE SULFATE 0.1 MG/ML 10ML SYR IV PRN (10:05)
[2019-10-29] MEDS: fentaNYL citrate 100 MCG/2 ML VIAL IV PRN ×2 (10:10→10:20)
[2019-10-29] MEDS ORDERED: ALUMINUM/MAGNESIUM SUSP 30 ML UDC PO PRN (11:01)
[2019-10-29] MEDS ORDERED: MAGNESIUM HYDROXIDE SUSP 30 ML UDC PO PRN (11:01)
[2019-10-29] MEDS ORDERED: HYDROmorphone INJ 0.5 MG/0.5 ML SYR IV PRN (11:01)
[2019-10-29] MEDS ORDERED: OXYCODONE HCL IR 5 MG TAB (IMMEDIATE RELEASE) PO PRN (11:01)
[2019-10-29] MEDS ORDERED: TAMSULOSIN HCL 0.4 MG CAP PO PRN (11:01)
[2019-10-29] MEDS ORDERED: NALOXONE HCL 0.4 MG/1 ML VIAL/CARP IV PRN (11:01)
[2019-10-29] MEDS ORDERED: bisacodyL 10 MG SUPP PR PRN (11:01)
--- NOTE | 2019-10-29 11:16 | Anesthesiology Progress Note ---
Date of Service October 29, 2019 Anesthesia Post Procedure Vital Signs Vital Signs: Temp Pulse Pulse Pulse Pulse Resp BP 10/29/19 11:00 36.6 C 73 18 10/29/19 10:45 70 15 10/29/19 10:35 73 16 10/29/19 10:25 36.5 C 75 17 10/29/19 10:15 74 14 10/29/19 10:05 74 15 10/29/19 09:55 77 18 10/29/19 09:49 36.2 C L 78 16 10/29/19 07:13 36.6 C 76 18 10/28/19 22:50 36.7 C 89 16 10/28/19 20:13 36.5 C 78 14 10/28/19 19:47 66 18 10/28/19 17:39 80 18 10/28/19 16:35 36.8 C 86 24 203/98 H BP BP Pulse Ox 10/29/19 11:00 110/64 95 10/29/19 10:45 109/56 L 96 10/29/19 10:35 117/52 L 94 10/29/19 10:25 128/62 95 10/29/19 10:15 123/69 92 10/29/19 10:05 109/69 98 10/29/19 09:55 115/71 98 10/29/19 09:49 125/71 99 10/29/19 07:13 138/51 L 94 10/28/19 22:50 95/59 L 95 10/28/19 20:13 158/79 H 99 10/28/19 19:47 175/78 H 97 10/28/19 17:39 183/106 H 96 10/28/19 16:35 99 Pain Intensity Left Ankle: Pain Intensity: 2 Transfer of Care Handoff Completed per policy Notes Mental Status: alert / awake / arousable and participated in evaluation Patient Amnestic to Procedure: Yes Nausea / Vomiting: adequately controlled Pain: adequately controlled Airway Patency, RR, SpO2: stable & adequate BP & HR: stable & adequate Hydration State: stable & adequate Anesthetic Complications: no major complications apparent
[2019-10-29] MEDS: allopurinoL 100 MG TAB PO SCH (11:19)
[2019-10-29] MEDS: CHOLECALCIFEROL 1,000 UNITS TAB PO SCH ×2 (11:19→20:32)
[2019-10-29] MEDS: PANTOprazole 40 MG TAB PO SCH (11:20)
[2019-10-29] MEDS: DOCUSATE SODIUM 100 MG CAP PO SCH ×2 (11:22→20:32)
[2019-10-29] MEDS: KETOROLAC TROMETHAMINE 15 MG/ML VIAL IV SCH ×2 (11:30→17:58)
[2019-10-29] MEDS: SODIUM CHLORIDE 0.9% 1000ML 1,000 ML IV SCH ×2 (11:30→20:35)
--- NOTE | 2019-10-29 14:27 | Hospitalist Progress Note ---
Date of Service October 29, 2019 Assessment & Plan (1) Closed left ankle fracture: - Following mechanical fall at home -- s/p ORIF this morning by Dr. Hanson. - DVT ppx per ortho. - PT/OT for discharge planning. - Monitor CBC daily to evaluate for acute blood loss anemia. (2) PAD (peripheral artery disease): - Resumed Plavix post op. - Continue statin agent as prescribed. (3) Hyperlipidemia: - Continue statin as prescribed. (4) Hypertension: - Continue Terazosin as prescribed. (5) Anemia: - Chronic anemia -- hgb ~12-13 on outpatient labs. - Recent ferritin level was 40; will order remainder of iron panel in the AM. - Consider GI work up if pt. is not up to date on colonoscopy screening. - Monitor CBC daily in post op setting. (6) Sleep apnea: - CPAP qhs. (7) Gout: - Continue allopurinol daily. DVT ppx: Per ortho. Dispo: Med/surg; will review labs in the morning but will sign off. Please call with questions. Supervising Physician Co-Signing Physician Notes Attending Attestation - Chart reviewed, care plan d/w LYNNETTE Cadena. I agree w/ the quintanilla components of her documentation. Labs/vitals acceptable; chronic medical issues are stable. Medicine to sign off; please reconsult if needed. Carlitos Chavarria MD Subjective Pt. is doing well post op. Denies pain in left foot/ankle. Is passing gas. Review of Systems Review of Systems: All systems reviewed & are unremarkable except as noted in HPI & below Constitutional: no fever, no chills, no fatigue and no weakness Respiratory: no cough, no dyspnea and no dyspnea on exertion Cardiovascular: no chest pain, no palpitations and no edema Gastrointestinal: no abdominal pain, no nausea and no constipation Genitourinary: no difficulty urinating Musculoskeletal: no back pain and no joint pain Integumentary: no non-healing lesions Physical Exam Physical Exam: General: Resting comfortably HEENT: NC/AT; PERRLA with EOMI; E[place]kine conjunctiva, MMM. No erythema of posterior pharynx Neck: Supple and nontender Cardiac: RRR Lungs: CTA bilaterally Abdomen: Bowel normoactive X 4; Nontender to palpation Extremities: Warm. No edema present Neuro: No focal weakness Skin: No rash Results & Data Vital Signs (Past 12 Hours) Vital Signs Temp Pulse Pulse Pulse Pulse Resp BP 10/29/19 13:00 36.6 C 77 18 108/62 10/29/19 12:08 36.4 C L 77 18 100/63 10/29/19 11:32 77 16 114/66 10/29/19 11:00 36.6 C 73 18 110/64 10/29/19 10:45 70 15 109/56 L 10/29/19 10:35 73 16 117/52 L 10/29/19 10:25 36.5 C 75 17 128/62 10/29/19 10:15 74 14 123/69 10/29/19 10:05 74 15 109/69 10/29/19 09:55 77 18 115/71 10/29/19 09:49 36.2 C L 78 16 125/71 10/29/19 07:13 36.6 C 76 18 138/51 L Pulse Ox 10/29/19 13:00 96 10/29/19 12:08 96 10/29/19 11:32 98 10/29/19 11:00 95 10/29/19 10:45 96 10/29/19 10:35 94 10/29/19 10:25 95 10/29/19 10:15 92 10/29/19 10:05 98 10/29/19 09:55 98 10/29/19 09:49 99 10/29/19 07:13 94 Laboratory Results 10/28/19 10/28/19 Range/Units 17:03 17:03 WBC 4.85 (4.8-10.8) K/uL RBC 4.39 L (4.7-6.1) M/uL Hgb 13.8 L (14.0-18.0) g/dL Hct 41.8 L (42-52) % MCV 95.2 (80-100) fL MCH 31.4 (25-34) pg MCHC 33.0 (32-36) g/dL RDW Std Deviation 46.8 H (36.4-46.3) fL RDW Coeff of Cesario 13.4 (11.5-14.5) % Plt Count 215 (130-400) K/uL MPV 9.8 (7.4-10.4) fL Sodium 141 (136-145) mmol/L Potassium 4.2 (3.5-5.1) mmol/L Chloride 110 H (98-107) mmol/L Carbon Dioxide 32 (21-32) mmol/L Anion Gap -1.0 L (3-11) BUN 16 (7-18) mg/dl Creatinine 0.86 (0.6-1.4) mg/dl Est Cr Clr Drug Dosing 84.4 ml/min Est GFR ( Amer) 98.3 Est GFR (Non-Af Amer) 84.8 BUN/Creatinine Ratio 19.0 (10-20) Glucose 96 (70-99) mg/dl Calcium 8.7 (8.5-10.1) mg/dl PG Care Time/CCT Total # of Minutes Spent Total Time Spent with Patient: Total time spent is greater than 50% in coordination of care (as documented) at patient's floor/unit and/or counseling patient: (1) Closed left ankle fracture Encounter type: initial encounter Qualified Code(s): S82.892A - Other fracture of left lower leg, initial encounter for closed fracture
[2019-10-29] MEDS: CEFAZOLIN 2000MG 2,000 MG/15 ML SYR IV SCH (16:36)
[2019-10-29] MEDS: SIMVASTATIN 10 MG TAB PO SCH (20:32)
[2019-10-29] MEDS: TERAZOSIN HCL 5 MG CAP PO SCH (20:32)
[2019-10-29] MEDS ORDERED: SENNA 8.6 MG TAB PO SCH (21:00)
[2019-10-30] MEDS: KETOROLAC TROMETHAMINE 15 MG/ML VIAL IV SCH ×3 (01:21→11:27)
[2019-10-30] MEDS: CEFAZOLIN 2000MG 2,000 MG/15 ML SYR IV SCH (01:21)
[2019-10-30 06:39] LABS: Hematocrit (blood only) 36.5 % (42-52); Hemoglobin 11.9 g/dL (14.0-18.0); Mean Corpuscular Hemoglobin 31.1 pg (25-34); Mean Corpuscular Hgb Conc 32.6 g/dL (32-36); Mean Corpuscular Volume 95.3 fL (80-100); Mean Platelet Volume 9.6 fL (7.4-10.4); Platelet Count 184 K/uL (130-400); RDW Coefficient of Variation 13.5 % (11.5-14.5); Red Blood Count 3.83 M/uL (4.7-6.1)
[2019-10-30 07:09] LABS: BUN Creatinine Ratio 19.7 (10-20); Calcium 8.3 mg/dl (8.5-10.1); Creatinine Clr Calc Pharmacy 87.1 ml/min; Est GFR (African American) 99.8; Est GFR (Non-African American) 86.1; Potassium 3.9 mmol/L (3.5-5.1)
--- NOTE | 2019-10-30 08:35 | Progress Note ---
DATE: 10/30/2019 SUBJECTIVE: A 73-year-old gentleman postop day 1 from ORIF of left ankle fracture. He is doing well. Pain is controlled. No chest pain or shortness of breath. Not feeling dizzy or lightheaded. OBJECTIVE: VITAL SIGNS: Temperature 36.6. Vital signs stable. GENERAL: Shows a pleasant, middle-aged male. He is sitting up in his bedside chair, looks quite comfortable. Examination of the left ankle reveals the dressing to be clean, dry, and intact. He can dorsiflex and plantarflex his toes appropriately. He is neurologically intact. General exam reveals his lungs to be clear to auscultation. HEART: Regular rate and rhythm. ABDOMEN: Soft, nontender, nondistended. EXTREMITIES: Grossly neurovascularly intact except as described above. ASSESSMENT: A 73-year-old gentleman postop day 1 from a left ankle ORIF, doing well. Pain is controlled. He is neurologically intact. PLAN: 1. DVT prophylaxis including thigh-high TEDs, SCDs, and will put him back on his Plavix. 2. PT/OT. He is nonweightbearing for the next 2 weeks. 3. Pain control, doing well with current pain regimen. 4. Disposition: Plan to discharge to home later today. We are going to therapy session this morning.
[2019-10-30] MEDS: DOCUSATE SODIUM 100 MG CAP PO SCH (08:41)
[2019-10-30] MEDS: allopurinoL 100 MG TAB PO SCH (08:41)
[2019-10-30] MEDS: PANTOprazole 40 MG TAB PO SCH (08:41)
[2019-10-30] MEDS: CHOLECALCIFEROL 1,000 UNITS TAB PO SCH (08:41)
[2019-10-30] MEDS ORDERED: CLOPIDOGREL BISULFATE 75 MG TAB PO SCH (09:00)
[2019-10-30] MEDS ORDERED: MULTIVITAMIN TAB PO SCH (09:00)
--- NOTE | 2019-11-11 11:48 | Discharge Summary ---
ADMITTING PHYSICIAN AND SURGEON: Serjio Hanson MD. ADMITTING DIAGNOSIS: Left unstable David B trimalleolar ankle fracture. SURGERY PERFORMED: ORIF of left ankle. SECONDARY DIAGNOSES: Peripheral arterial disease, hyperlipidemia, hypertension, chronic anemia, sleep apnea, and gout. CONSULTS: None obtained. HISTORY AND PHYSICAL EXAM: Well documented in the patient's chart. HOSPITAL COURSE: The patient was admitted on 10/29/2019, underwent ORIF of left ankle, tolerated the procedure well. There were no complications. He was transferred to the PACU postoperatively and later to the orthopedic floor for further care. He was given THANG stockings, SCDs, and Plavix for DVT prophylaxis, PT/OT nonweightbearing for the next 2 weeks. Hemoglobin, hematocrit and vital signs were monitored during his hospital stay and remained stable, did not require any blood transfusions. There were no complications. On postop day 1, he was discharged home. He was given printed discharge instructions as well as new prescriptions for acetaminophen 650 mg every 6 hours as needed and oxycodone 5 mg taking 1-2 tabs every 6 hours as needed. Continue his home medications. Continue physical therapy, weightbearing as tolerated, THANG stockings. He can follow up on 11/14/2019 or sooner if there are any problems or concerns.
== END 2019-10-30 11:44 | disposition home or self-care (01) | DRG 494 ==
LOC: ED 16:29 → 3N 18:56

== ENCOUNTER 2022-09-08 15:04 | Inpatient (IN) ==
[2022-09-08] MEDS: SODIUM CHLORIDE 0.9% 1000ML 1,000 ML IV SCH (15:38)
--- NOTE | 2022-09-08 15:38 | Emergency Department Note ---
History of Present Illness General Chief complaint: Illness Stated complaint: ILLNESS Time Seen by Provider: 09/08/22 15:14 Source: patient Mode of arrival: ambulatory Limitations: no limitations History of Present Illness Provider complaint: headache, vision changes Onset (ago): hour(s) Maximum Pain Intensity: 2 Treatments prior to arrival: none This is a 76-year-old man presents emerged department complaining of headache and vision changes that began at 8 AM this morning. Patient states he began with a left frontotemporal dull headache around 8:00 in the morning while he was working at home on his computer. He states he then began to notice vision changes that started in the left and then progressed to bilateral eyes. He initially described it as being slightly less sharp/clear and then losing the right top and bottom visual metzger. He states if he would look away or concentrate very hard then the entire image would become clear and appear normal. He states he does have routine eye exams which she had recently and he was told he had no problems. No prior history of macular degeneration, glaucoma, retinal detachment. He states he has had cataracts removed. No prior history of headaches. He states no recent head trauma or injury. He was diagnosed with COVID 10 days ago, but had felt he was doing well and mostly over his symptoms. He states he is a former smoker, smoking 2 packs a day for 20 years however he quit in 1977. Home Medications Medication Instructions Recorded Confirmed Type biotin 5,000 mcg disintegrating 1 tab PO QAM 10/15/18 09/08/22 History tablet cholecalciferol (vitamin D3) 25 1,000 unit PO BID 10/15/18 09/08/22 History mcg (1,000 unit) tablet (Vitamin D3) simvastatin 10 mg tablet 10 mg PO PM #90 tabs 07/16/21 09/08/22 Rx terazosin 5 mg capsule 5 mg PO QPM #90 caps 09/05/21 09/08/22 Rx clopidogrel 75 mg tablet 75 mg PO QAM #90 tabs 11/18/21 09/08/22 Rx allopurinol 100 mg tablet 100 mg PO QAM #90 tabs 12/05/21 09/08/22 Rx Allergies Allergy/AdvReac Type Severity Reaction Status Date / Time latex AdvReac Rash Verified 09/08/22 15:59 Past Med/Surg History Medical History (Updated 09/09/22 @ 23:11 by Ene Galvez DO) Acute CVA (cerebrovascular accident) Cardiac murmur no embalmer assistant; last echo 2008 [place] Closed left ankle fracture Encounter for pre-operative examination Family history of colon cancer History of colon polyps Hyperlipidemia Hypertension On anticoagulant therapy on plavix Sleep apnea cpap Upper GI bleed hx Surgical History History of angioplasty left SFA (per record from [facility] [place]) History of ankle surgery Left, 10/29/2019. Pt made ASA 3. Tolerated GA with LMA #4 without issues History of colonoscopy History of esophagogastroduodenoscopy (EGD) History of tooth extraction wisdom teeth Status post femoral-popliteal bypass surgery 2013 bilateral @ [facility] [place] Family History Mother Family hx of colon cancer Colon cancer Lung disease Brother Diabetes Father Myocardial infarction Aunt Myocardial infarction Uncle Myocardial infarction Other No family history of adverse response to anesthesia Denies family history of Ovarian cancer Prostate cancer Breast cancer Social History Smoking Status: Never smoker Tobacco Type: Cigarettes Second Hand Exposure: No; Hx Alcohol Use: Yes Alcohol type: beer Hx Substance Use: No Preferred Language: Polish Communication Ability: Effective [employer] Utility Worker Required: No Beliefs That Will Affect Care: None marital status: Current Living Situation: Spouse current occupational status: employed and retired 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 Review of Systems A total of 10 systems reviewed and were otherwise negative All systems reviewed & are unremarkable except as noted in HPI & below Physical Exam Vital Signs Vital Signs - 24 hr 09/09/22 01:26 09/09/22 03:30 09/09/22 07:38 Temperature 36.8 C 36.8 C Temperature Source Oral Oral Pulse Rate 78 Pulse Rate [Apical] 76 77 Pulse Rhythm [Apical] Regular Pulse Strength [Apical] Normal Respiratory Rate 20 16 18 Respiratory Effort / Characteristics Non-Labored Spontaneous Non-Labored Non-Labored Spontaneous Respiratory Depth Normal Normal Normal Respiratory Pattern Regular Regular Blood Pressure [Right Arm] 144/78 H 138/66 Blood Pressure Mean [Right Arm] 100 90 Blood Pressure Position [Right Arm] Lying Semi-fowlers Pulse Oximetry 95 96 98 Oxygen Delivery Method Room Air Room Air Oxygen Flow Rate 0 Fraction of Inspired Oxygen 21 09/09/22 10:07 09/09/22 15:39 Temperature Temperature Source Pulse Rate 70 Pulse Rate [Apical] 77 Pulse Rhythm [Apical] Regular Pulse Strength [Apical] Normal Respiratory Rate Respiratory Effort / Characteristics Respiratory Depth Respiratory Pattern Blood Pressure [Right Arm] Blood Pressure Mean [Right Arm] Blood Pressure Position [Right Arm] Pulse Oximetry Oxygen Delivery Method Oxygen Flow Rate Fraction of Inspired Oxygen GENERAL: alert, well appearing, well nourished, no distress, non-toxic HEAD: nc/at, no palpable mass at the left jewish EYE EXAM: normal conjunctiva, PERRL and EOM's grossly intact, no nystagmus OROPHARYNX: no exudate, no erythema, lips, buccal mucosa, and tongue normal and mucous membranes are moist NECK: supple, no nuchal rigidity, no adenopathy, non-tender LUNGS: Clear to auscultation. Normal chest wall mechanics, no w/r/r HEART: no murmurs, S1 normal and S2 normal ABDOMEN: abdomen soft, non-tender, normo-active bowel sounds, no masses, no rebound or guarding. BACK: Back is symmetrical on inspection and there is no deformity, no midline tenderness, no CVA tenderness. SKIN: no rashes and no bruising UPPER EXTREMITIES: upper extremities are grossly normal. FROM, nml pulses b/l. LOWER EXTREMITIES: No pitting edema. FROM, nml pulses b/l. NEURO EXAM: Normal sensorium, cranial nerves II-XII grossly intact, normal speech, no gross weakness of arms, no gross weakness of legs. Gross sensation intact. Course Course 1711: Pt updated on results. Administered Medications Allopurinol (Allopurinol 100 Mg Tab) 100 mg PO [facility] Stop: 10/09/22 08:59 Last Admin: 09/09/22 08:48 Dose: 100 mg Documented By: ANITA Atorvastatin Calcium (Atorvastatin 40 Mg Tab) 40 mg PO QAM ERYN Stop: 10/09/22 08:59 Last Admin: 09/09/22 08:48 Dose: 40 mg Documented By: ANITA Sodium Chloride (Nss 1000ml) 1,000 mls @ 125 mls/hr IV .Q8H ERNY Stop: 10/08/22 15:29 Last Admin: 09/09/22 22:36 Dose: 125 mls/hr Documented By: Infusion: 09/09/22 22:36 Dose: 125 mls/hr Documented By: Admin: 09/09/22 14:43 Dose: 125 mls/hr Documented By: Infusion: 09/09/22 13:46 Dose: 125 mls/hr Documented By: Admin: 09/09/22 05:46 Dose: 125 mls/hr Documented By: Infusion: 09/09/22 05:46 Dose: 125 mls/hr Documented By: Admin: 09/09/22 01:09 Dose: 125 mls/hr Documented By: Infusion: 09/09/22 01:09 Dose: 0 mls/hr Documented By: Infusion: 09/08/22 22:20 Dose: 0 mls/hr Documented By: Admin: 09/08/22 15:38 Dose: 125 mls/hr Documented By: YO Metoprolol Tartrate (Metoprolol Tartrate 25 Mg Tab) 25 mg PO BID ERYN Stop: 10/08/22 20:59 Last Admin: 09/09/22 19:25 Dose: 25 mg Documented By: Admin: 09/09/22 10:08 Dose: 25 mg Documented By: Admin: 09/08/22 21:31 Dose: Not Given Documented By: YO Pantoprazole Sodium (Pantoprazole 40 Mg Tab) 40 mg PO DAILY ERYN Stop: 10/09/22 08:59 Last Admin: 09/09/22 08:48 Dose: 40 mg Documented By: ANITA Terazosin HCl (Terazosin Hcl 5 Mg Cap) 5 mg PO QPM ERYN Stop: 10/08/22 22:56 Last Admin: 09/09/22 19:25 Dose: 5 mg Documented By: Admin: 09/09/22 01:08 Dose: 5 mg Documented By: STONE GRADER Discontinued Medications Heparin Sodium (Porcine) (Heparin Sod (Porcine) 1000 Unit/Ml) 1 units IV NOW ONE Stop: 09/08/22 18:25 Last Admin: 09/08/22 21:04 Dose: 4,000 units Documented By: YO Co-signed By: HAILEY Heparin Sodium (Porcine) (Heparin Sod (Porcine) 1000 Unit/Ml) Confirm Administered Dose 1,000 units .ROUTE .STK-MED ONE Stop: 09/08/22 20:37 Last Admin: 09/08/22 21:41 Dose: Not Given Documented By: YO Heparin Sodium/Dextrose (Heparin Iv Adult Wt-Based Low-Dose With Bolus Protocol) 1 each IV NOW STA; Protocol Stop: 09/08/22 18:10 Last Admin: 09/08/22 21:41 Dose: Not Given Documented By: YO Heparin Sodium/Dextrose (Heparin Sodium/Dextrose) 25,000 units in 500 mls @ 22 mls/hr IV .[id number] ERYN; Protocol Stop: 10/08/22 18:29 Last Titration: 09/09/22 07:58 Dose: 0 units/hr, 0 mls/hr Documented By: ANITA Co-signed By: LETICIA Titration: 09/09/22 03:57 Dose: 1,100 units/hr, 22 mls/hr Documented By: OLIVIA Co-signed By: LOLA Admin: 09/08/22 21:06 Dose: 950 units/hr, 19 mls/hr Documented By: YO Co-signed By: HAILEY Heparin Sodium (Porcine) 3,000 (units/ Syringe) 3 mls @ 10 mls/min IV ONE ONE Stop: 09/09/22 05:01 Last Admin: 09/09/22 05:41 Dose: 10 mls/min Documented By: OLIVIA Co-signed By: LOLA Ioversol (Optiray 320 500ml) 110 ml IV ONCE ONE Stop: 09/08/22 16:25 Last Admin: 09/08/22 16:24 Dose: 110 ml Documented By: FILIPE Labetalol HCl (Labetalol Hcl Iv 5 Mg/Ml 20ml) 10 mg IV NOW STA Stop: 09/08/22 17:08 Last Admin: 09/08/22 17:17 Dose: 10 mg Documented By: YO Co-signed By: SHREYAS Labetalol HCl (Labetalol Hcl Iv 5 Mg/Ml 20ml) 10 mg IV NOW STA Stop: 09/08/22 20:28 Last Admin: 09/08/22 21:26 Dose: 10 mg Documented By: YO Co-signed By: ALFONSO Miscellaneous (Hold Heparin Drip Order) 1 each N/A ONE ONE Stop: 09/09/22 07:46 Last Admin: 09/09/22 07:59 Dose: 1 each Documented By: ANITA Critical Care Time Critical Care Time: Yes Total Critical Care Time: 36 Critical care of 36 min performed to assess and manage high likelihood of life- threatening dysrhythmia and neurologic symptoms, involving labs and imaging performed with assessment to evaluate dysrhythmia and neurologic symptom diagnosis with frequent reassessment. This time includes bedside time, treatment discussions with patient/family/consultants, documentation time and excludes procedure time. Medical Decision Making Differential Diagnosis Differential Diagnosis includes but is not limited to ischemic Stroke, hemorrhagic stroke, bells palsy, mass, neoplasm, migraine headache, seizure, subarachnoid hemorrhage, TIA, and transient global amnesia. Medical Records Attestation: I reviewed the patient's medical records. Home Medications Current Medication List: was personally reviewed by me Laboratory Data Attestation: I reviewed the patient's lab results. Result diagrams: 09/09/22 03:24 09/09/22 03:23 Lab Results 09/08/22 09/08/22 09/08/22 Range/Units 15:23 15:23 15:23 WBC 5.78 (4.8-10.8) K/ul RBC 4.49 L (4.63-6.08) M/uL Hgb 14.0 (14.0-18.0) g/dl POC Hgb (14.0-18.0) g/dl Hct 41.7 (40.1-51.0) % POC Hct (42-52) % MCV 92.9 (80.0-100.0) fL MCH 31.2 (25.0-34.0) pg MCHC 33.6 (32.0-36.0) g/dL RDW Std Deviation 43.0 (36.4-46.3) fL RDW Coeff of Cesario 12.6 (11.5-14.5) % Plt Count 302 (130-400) K/uL MPV 9.4 (9.4-12.4) fL Immature Gran % (Auto) 0.2 % Neut % (Auto) 82.1 % Lymph % (Auto) 10.4 % [place] % (Auto) 6.2 % Eos % (Auto) 0.9 % Baso % (Auto) 0.2 % Neut # (Auto) 4.75 (1.4-6.5) K/uL Lymph # (Auto) 0.60 L (1.2-3.4) K/uL [place] # (Auto) 0.36 (0.24-0.82) K/uL Eos # (Auto) 0.05 (0-0.50) K/uL Baso # (Auto) 0.01 (0-0.2) K/uL Immature Gran # (Auto) 0.01 (0.00-0.02) K/uL ESR 30 H (0-20) mm/hr PT 10.9 (9.0-12.0) Seconds INR 1.0 (0.9-1.1) APTT (21.0-31.0) Seconds PTT Ratio POC Sodium (135-144) mmol/L Sodium (136-145) mmol/L POC Potassium (3.3-5.0) mmol/L Potassium (3.5-5.1) mmol/L POC Chloride (101-112) mmol/L Chloride (98-107) mmol/L Carbon Dioxide (21-32) mmol/L POC Total CO2 (24-31) mmol/L Anion Gap (3-11) POC Anion Gap (16-25) mmol/L POC BUN (7-18) mg/dl BUN (6-23) mg/dl Creatinine (0.6-1.4) mg/dl POC Creatinine (0.6-1.3) mg/dl Est Cr Clr Drug Dosing ml/min Est GFR ( Amer) ml/min Est GFR (Non-Af Amer) ml/min BUN/Creatinine Ratio (10-20) Glucose (70-99(Fasting)) mg/dl POC Glucose (other) (70-99) mg/dl Estimat Average Glucose mg/dl Hemoglobin A1c (4.5-5.6) % Calcium (8.5-10.1) mg/dl POC Ioniz Calcium Mili (1.12-1.32) mmol/l Magnesium (1.7-2.4) mg/dl Total Bilirubin (0.2-1.0) mg/dl AST (13-39) U/L ALT (7-52) U/L Alkaline Phosphatase (34-104) U/L Troponin I High Sens (0-20) pg/ml Total Protein (6.0-8.3) gm/dl Albumin (3.4-5.0) gm/dl Globulin (2.5-4.0) gm/dl Albumin/Globulin Ratio (0.9-2) Triglycerides (0-150) mg/dl Cholesterol (0-200) mg/dl LDL Cholesterol, Calc mg/dl VLDL Cholesterol, Calc (0-30) mg/dl HDL Cholesterol mg/dl Cholesterol/HDL Ratio (0-5) Lipase (11-82) U/L TSH (0.300-4.500) uIu/ml SARS-CoV-2 (PCR) (Negative) Influenza Type A (PCR) (Neg) Influenza Type B (PCR) (Neg) RSV (RT-PCR) (Neg) 09/08/22 09/08/22 09/08/22 Range/Units 15:23 15:23 15:23 WBC (4.8-10.8) K/ul RBC (4.63-6.08) M/uL Hgb (14.0-18.0) g/dl POC Hgb (14.0-18.0) g/dl Hct (40.1-51.0) % POC Hct (42-52) % MCV (80.0-100.0) fL MCH (25.0-34.0) pg MCHC (32.0-36.0) g/dL RDW Std Deviation (36.4-46.3) fL RDW Coeff of Cesario (11.5-14.5) % Plt Count (130-400) K/uL MPV (9.4-12.4) fL Immature Gran % (Auto) % Neut % (Auto) % Lymph % (Auto) % [place] % (Auto) % Eos % (Auto) % Baso % (Auto) % Neut # (Auto) (1.4-6.5) K/uL Lymph # (Auto) (1.2-3.4) K/uL [place] # (Auto) (0.24-0.82) K/uL Eos # (Auto) (0-0.50) K/uL Baso # (Auto) (0-0.2) K/uL Immature Gran # (Auto) (0.00-0.02) K/uL ESR (0-20) mm/hr PT (9.0-12.0) Seconds INR (0.9-1.1) APTT 26.8 (21.0-31.0) Seconds PTT Ratio 1.0 POC Sodium (135-144) mmol/L Sodium 137 (136-145) mmol/L POC Potassium (3.3-5.0) mmol/L Potassium 4.1 (3.5-5.1) mmol/L POC Chloride (101-112) mmol/L Chloride 103 (98-107) mmol/L Carbon Dioxide 26 (21-32) mmol/L POC Total CO2 (24-31) mmol/L Anion Gap 8 (3-11) POC Anion Gap (16-25) mmol/L POC BUN (7-18) mg/dl BUN 16 (6-23) mg/dl Creatinine 0.86 (0.6-1.4) mg/dl POC Creatinine (0.6-1.3) mg/dl Est Cr Clr Drug Dosing 77.7 ml/min Est GFR ( Amer) 96.3 ml/min Est GFR (Non-Af Amer) 83.1 ml/min BUN/Creatinine Ratio 18.6 (10-20) Glucose 112 H (70-99(Fasting)) mg/dl POC Glucose (other) (70-99) mg/dl Estimat Average Glucose mg/dl Hemoglobin A1c (4.5-5.6) % Calcium 8.9 (8.5-10.1) mg/dl POC Ioniz Calcium Mili (1.12-1.32) mmol/l Magnesium 2.0 (1.7-2.4) mg/dl Total Bilirubin 0.5 (0.2-1.0) mg/dl AST 20 (13-39) U/L ALT 16 (7-52) U/L Alkaline Phosphatase 67 (34-104) U/L Troponin I High Sens 11.0 (0-20) pg/ml Total Protein 7.3 (6.0-8.3) gm/dl Albumin 4.3 (3.4-5.0) gm/dl Globulin 3.0 (2.5-4.0) gm/dl Albumin/Globulin Ratio 1.4 (0.9-2) Triglycerides (0-150) mg/dl Cholesterol (0-200) mg/dl LDL Cholesterol, Calc mg/dl VLDL Cholesterol, Calc (0-30) mg/dl HDL Cholesterol mg/dl Cholesterol/HDL Ratio (0-5) Lipase 23 (11-82) U/L TSH 2.488 (0.300-4.500) uIu/ml SARS-CoV-2 (PCR) (Negative) Influenza Type A (PCR) (Neg) Influenza Type B (PCR) (Neg) RSV (RT-PCR) (Neg) 09/08/22 09/08/22 09/08/22 Range/Units 15:28 18:37 23:48 WBC (4.8-10.8) K/ul RBC (4.63-6.08) M/uL Hgb (14.0-18.0) g/dl POC Hgb 14.3 (14.0-18.0) g/dl Hct (40.1-51.0) % POC Hct 42 (42-52) % MCV (80.0-100.0) fL MCH (25.0-34.0) pg MCHC (32.0-36.0) g/dL RDW Std Deviation (36.4-46.3) fL RDW Coeff of Cesario (11.5-14.5) % Plt Count (130-400) K/uL MPV (9.4-12.4) fL Immature Gran % (Auto) % Neut % (Auto) % Lymph % (Auto) % [place] % (Auto) % Eos % (Auto) % Baso % (Auto) % Neut # (Auto) (1.4-6.5) K/uL Lymph # (Auto) (1.2-3.4) K/uL [place] # (Auto) (0.24-0.82) K/uL Eos # (Auto) (0-0.50) K/uL Baso # (Auto) (0-0.2) K/uL Immature Gran # (Auto) (0.00-0.02) K/uL ESR (0-20) mm/hr PT (9.0-12.0) Seconds INR (0.9-1.1) APTT (21.0-31.0) Seconds PTT Ratio POC Sodium 138 (135-144) mmol/L Sodium (136-145) mmol/L POC Potassium 4.0 (3.3-5.0) mmol/L Potassium (3.5-5.1) mmol/L POC Chloride 101 (101-112) mmol/L Chloride (98-107) mmol/L Carbon Dioxide (21-32) mmol/L POC Total CO2 26 (24-31) mmol/L Anion Gap (3-11) POC Anion Gap 16.0 (16-25) mmol/L POC BUN 15 (7-18) mg/dl BUN (6-23) mg/dl Creatinine (0.6-1.4) mg/dl POC Creatinine 0.8 (0.6-1.3) mg/dl Est Cr Clr Drug Dosing ml/min Est GFR ( Amer) ml/min Est GFR (Non-Af Amer) ml/min BUN/Creatinine Ratio (10-20) Glucose (70-99(Fasting)) mg/dl POC Glucose (other) 115 H (70-99) mg/dl Estimat Average Glucose mg/dl Hemoglobin A1c (4.5-5.6) % Calcium (8.5-10.1) mg/dl POC Ioniz Calcium Mili 1.16 (1.12-1.32) mmol/l Magnesium (1.7-2.4) mg/dl Total Bilirubin (0.2-1.0) mg/dl AST (13-39) U/L ALT (7-52) U/L Alkaline Phosphatase (34-104) U/L Troponin I High Sens 13.8 (0-20) pg/ml Total Protein (6.0-8.3) gm/dl Albumin (3.4-5.0) gm/dl Globulin (2.5-4.0) gm/dl Albumin/Globulin Ratio (0.9-2) Triglycerides (0-150) mg/dl Cholesterol (0-200) mg/dl LDL Cholesterol, Calc mg/dl VLDL Cholesterol, Calc (0-30) mg/dl HDL Cholesterol mg/dl Cholesterol/HDL Ratio (0-5) Lipase (11-82) U/L TSH (0.300-4.500) uIu/ml SARS-CoV-2 (PCR) POSITIVE A* (Negative) Influenza Type A (PCR) Negative (Neg) Influenza Type B (PCR) Negative (Neg) RSV (RT-PCR) Negative (Neg) 09/09/22 09/09/22 09/09/22 Range/Units 03:23 03:23 03:24 WBC 5.71 (4.8-10.8) K/ul RBC 3.95 L (4.63-6.08) M/uL Hgb 12.5 L (14.0-18.0) g/dl POC Hgb (14.0-18.0) g/dl Hct 37.4 L (40.1-51.0) % POC Hct (42-52) % MCV 94.7 (80.0-100.0) fL MCH 31.6 (25.0-34.0) pg MCHC 33.4 (32.0-36.0) g/dL RDW Std Deviation 44.5 (36.4-46.3) fL RDW Coeff of Cesario 12.8 (11.5-14.5) % Plt Count 251 (130-400) K/uL MPV 9.2 L (9.4-12.4) fL Immature Gran % (Auto) 0.5 % Neut % (Auto) 75.3 % Lymph % (Auto) 13.1 % [place] % (Auto) 9.5 % Eos % (Auto) 1.2 % Baso % (Auto) 0.4 % Neut # (Auto) 4.30 (1.4-6.5) K/uL Lymph # (Auto) 0.75 L (1.2-3.4) K/uL [place] # (Auto) 0.54 (0.24-0.82) K/uL Eos # (Auto) 0.07 (0-0.50) K/uL Baso # (Auto) 0.02 (0-0.2) K/uL Immature Gran # (Auto) 0.03 H (0.00-0.02) K/uL ESR (0-20) mm/hr PT (9.0-12.0) Seconds INR (0.9-1.1) APTT 31.4 H (21.0-31.0) Seconds PTT Ratio 1.1 POC Sodium (135-144) mmol/L Sodium 140 (136-145) mmol/L POC Potassium (3.3-5.0) mmol/L Potassium 3.8 (3.5-5.1) mmol/L POC Chloride (101-112) mmol/L Chloride 107 (98-107) mmol/L Carbon Dioxide 29 (21-32) mmol/L POC Total CO2 (24-31) mmol/L Anion Gap 4 (3-11) POC Anion Gap (16-25) mmol/L POC BUN (7-18) mg/dl BUN 13 (6-23) mg/dl Creatinine 0.82 (0.6-1.4) mg/dl POC Creatinine (0.6-1.3) mg/dl Est Cr Clr Drug Dosing 80.7 ml/min Est GFR ( Amer) 98.2 ml/min Est GFR (Non-Af Amer) 84.7 ml/min BUN/Creatinine Ratio 15.9 (10-20) Glucose 108 H (70-99(Fasting)) mg/dl POC Glucose (other) (70-99) mg/dl Estimat Average Glucose mg/dl Hemoglobin A1c (4.5-5.6) % Calcium 8.7 (8.5-10.1) mg/dl POC Ioniz Calcium Mili (1.12-1.32) mmol/l Magnesium (1.7-2.4) mg/dl Total Bilirubin 0.4 (0.2-1.0) mg/dl AST 15 (13-39) U/L ALT 13 (7-52) U/L Alkaline Phosphatase 63 (34-104) U/L Troponin I High Sens (0-20) pg/ml Total Protein 6.4 (6.0-8.3) gm/dl Albumin 3.8 (3.4-5.0) gm/dl Globulin 2.6 (2.5-4.0) gm/dl Albumin/Globulin Ratio 1.5 (0.9-2) Triglycerides 73 (0-150) mg/dl Cholesterol 141 (0-200) mg/dl LDL Cholesterol, Calc 77 mg/dl VLDL Cholesterol, Calc 15 (0-30) mg/dl HDL Cholesterol 49 mg/dl Cholesterol/HDL Ratio 2.9 (0-5) Lipase (11-82) U/L TSH (0.300-4.500) uIu/ml SARS-CoV-2 (PCR) (Negative) Influenza Type A (PCR) (Neg) Influenza Type B (PCR) (Neg) RSV (RT-PCR) (Neg) 09/09/22 09/09/22 Range/Units 03:24 11:27 WBC (4.8-10.8) K/ul RBC (4.63-6.08) M/uL Hgb (14.0-18.0) g/dl POC Hgb (14.0-18.0) g/dl Hct (40.1-51.0) % POC Hct (42-52) % MCV (80.0-100.0) fL MCH (25.0-34.0) pg MCHC (32.0-36.0) g/dL RDW Std Deviation (36.4-46.3) fL RDW Coeff of Cesario (11.5-14.5) % Plt Count (130-400) K/uL MPV (9.4-12.4) fL Immature Gran % (Auto) % Neut % (Auto) % Lymph % (Auto) % [place] % (Auto) % Eos % (Auto) % Baso % (Auto) % Neut # (Auto) (1.4-6.5) K/uL Lymph # (Auto) (1.2-3.4) K/uL [place] # (Auto) (0.24-0.82) K/uL Eos # (Auto) (0-0.50) K/uL Baso # (Auto) (0-0.2) K/uL Immature Gran # (Auto) (0.00-0.02) K/uL ESR (0-20) mm/hr PT (9.0-12.0) Seconds INR (0.9-1.1) APTT 25.6 (21.0-31.0) Seconds PTT Ratio 0.9 POC Sodium (135-144) mmol/L Sodium (136-145) mmol/L POC Potassium (3.3-5.0) mmol/L Potassium (3.5-5.1) mmol/L POC Chloride (101-112) mmol/L Chloride (98-107) mmol/L Carbon Dioxide (21-32) mmol/L POC Total CO2 (24-31) mmol/L Anion Gap (3-11) POC Anion Gap (16-25) mmol/L POC BUN (7-18) mg/dl BUN (6-23) mg/dl Creatinine (0.6-1.4) mg/dl POC Creatinine (0.6-1.3) mg/dl Est Cr Clr Drug Dosing ml/min Est GFR ( Amer) ml/min Est GFR (Non-Af Amer) ml/min BUN/Creatinine Ratio (10-20) Glucose (70-99(Fasting)) mg/dl POC Glucose (other) (70-99) mg/dl Estimat Average Glucose 108 mg/dl Hemoglobin A1c 5.4 (4.5-5.6) % Calcium (8.5-10.1) mg/dl POC Ioniz Calcium Mili (1.12-1.32) mmol/l Magnesium (1.7-2.4) mg/dl Total Bilirubin (0.2-1.0) mg/dl AST (13-39) U/L ALT (7-52) U/L Alkaline Phosphatase (34-104) U/L Troponin I High Sens (0-20) pg/ml Total Protein (6.0-8.3) gm/dl Albumin (3.4-5.0) gm/dl Globulin (2.5-4.0) gm/dl Albumin/Globulin Ratio (0.9-2) Triglycerides (0-150) mg/dl Cholesterol (0-200) mg/dl LDL Cholesterol, Calc mg/dl VLDL Cholesterol, Calc (0-30) mg/dl HDL Cholesterol mg/dl Cholesterol/HDL Ratio (0-5) Lipase (11-82) U/L TSH (0.300-4.500) uIu/ml SARS-CoV-2 (PCR) (Negative) Influenza Type A (PCR) (Neg) Influenza Type B (PCR) (Neg) RSV (RT-PCR) (Neg) Imaging Data Radiologist's Impression: Head CT 09/09/22 12:00 CT OF THE HEAD WITHOUT CONTRAST CLINICAL HISTORY: f/u [facility] COMPARISON STUDY: Head CT and CTA of the head September 08, 2022. MRI of the brain performed earlier today. CT DOSE: 823.12 mGy.cm TECHNIQUE: Helical axial images of the head were obtained without IV contrast. Automated exposure control was utilized for the study. A dose lowering techniqu e was utilized adhering to the principles of ALARA. FINDINGS: Note is made of hypodensity with loss of yang-white differentiation within the medial left temporal lobe extending into the left occipital lobe. Extent is similar to prior MRI and head CT. A 1.7 cm focus of acute hemorrhage within the left temporal lobe is new since prior head CT. This was shown on MRI. There is an adjacent smaller focus of hemorrhage which was also shown on MRI. There is mild mass effect from the infarct is no midline shift. Ventricular system is stable. Basal cisterns are patent. There are no extra-axial collections. Sinus mucosal thickening. IMPRESSION: Hypodensity with loss of yang-white differentiation within the left temporal and occipital lobes with associated hemorrhagic foci, similar to MRI performed earlier today. Stable mild mass effect. The findings favor an acute infarct with hemorrhagic conversion. Herpes encephalitis could appear similar although is considered less likely. Follow-up head CT in 24 hours is recomme nded. ACT 112: Negative or not required by law. Electronically signed by: Gerson Nichols M.D. 09/09/2022 1:[address] 09/09/22 17:[address] DOSE: 994.59 mGy.cm HISTORY: Follow-up intracranial hemorrhage. TECHNIQUE: Multiaxial CT images of the head were performed without the use of intravenous contrast. Automated exposure control was utilized for this study. A dose lowering technique was utilized adhering to the principles of ALARA. Comparison: Head CT 09/09/2022. Findings: Mild mucosal thickening within the paranasal sinuses. The mastoid air cells are clear. The calvarium and skull base are intact. Left medial temporal lobe and left occipital lobe hypodensity is again noted and favors expected e volution of a left RADIO TECHNICIAN territory infarct. Focus of intracranial hemorrhage centered within the left temporal lobe hypodensity has slightly progressed. This currently measures 2.1 x 2.0 cm, previously measuring 1.9 x 1.7 cm. No additional areas of intracranial hemorrhage identified. The ventricles remain stable in size. No significant midline shift. Minimal mass effect of the left temporal lobe remains unchanged. Impression: Redemonstration of the hypodensity within the left temporal/occipital lobes suggesting expected evolution of a left RADIO TECHNICIAN territory infarct. The hemorrhagic focus within the left temporal lobe has slightly progressed as described above. Continued [address] follow-up recommended. This report was called/faxed to the referring physician following dictation. ACT 112: Negative or not required by law. Electronically signed by: Shekhar Lou M.D. 09/09/2022 5:12 PM ECG Data Attestation: I personally reviewed and interpreted this ECG as follows: Indication: + other Rate (beats per minute): 94 Rhythm: + atrial flutter ECG Intervals/blocks: + Normal QRS and + Normal QT ECG [place]: + Normal ECG ST segments: + Nonspecific ST abnormalities MDM Narrative An order was placed for continuous cardiac monitoring. The monitor shows a rate of _88_ with _a.flutter_ rhythm. This is a 76-year-old male who presents with atypical symptoms of headache and vision changes. Of note on arrival patient noted to be in atrial flutter on telemetry and on EKG which is new for him. No prior documented history. Patient does take Plavix daily, no anticoagulation. Labs drawn and sent and patient sent for CT/CTA. While these are reassuring there was evidence of narrowing at the left vertebral. Patient was rate controlled with his atrial fibrillation, and denies any shortness of breath or chest pain. I did discuss all results with the patient at bedside and he verbalized understanding. Due to concern for atypical neurologic symptoms with no obvious source as well as new onset atrial flutter, I recommended additional inpatient management and evaluation. Patient verbalized understanding and was in agreement. Case discussed with hospitalist team including shortness of anticoagulation. Impression & Plan Headache, Hypertension, Changes in vision, Atrial flutter Discharge Plan Visit Data Chief Complaint: Illness Stated Complaint: ILLNESS ED Provider: Ene Galvez Discharge Problem: Headache, Hypertension, Changes in vision, Atrial flutter Patient Disposition: Admitted As Inpatient Discharge Instructions Interventions: ED Discharge Assessment Last Done: 09/08/22 21:56
[2022-09-08 15:42] LABS: iSTAT Creatinine 0.8 mg/dl (0.6-1.3); iSTAT Hemoglobin 14.3 g/dl (14.0-18.0); iSTAT Ionized Calcium 1.16 mmol/l (1.12-1.32)
[2022-09-08 15:54] LABS: Prothrombin Time 10.9 Seconds (9.0-12.0)
[2022-09-08 16:00] LABS: Basophils # (auto) 0.01 K/uL (0-0.2); Basophils % (auto) 0.2 %; Eosinophils # (auto) 0.05 K/uL (0-0.50); Eosinophils % (auto) 0.9 %; Hematocrit (blood only) 41.7 % (40.1-51.0); Immature Granulocytes # (auto) 0.01 K/uL (0.00-0.02); Immature Granulocytes % (auto) 0.2 %; Lymphocytes % (auto) 10.4 %; Mean Corpuscular Hemoglobin 31.2 pg (25.0-34.0); Mean Corpuscular Hgb Conc 33.6 g/dL (32.0-36.0); Mean Corpuscular Volume 92.9 fL (80.0-100.0); Mean Platelet Volume 9.4 fL (9.4-12.4); Monocytes # (auto) 0.36 K/uL (0.24-0.82); Monocytes % (auto) 6.2 %; Neutrophils # (auto) 4.75 K/uL (1.4-6.5); Neutrophils % (auto) 82.1 %; Platelet Count 302 K/uL (130-400); RDW Coefficient of Variation 12.6 % (11.5-14.5); Red Blood Count 4.49 M/uL (4.63-6.08); White Blood Count 5.78 K/ul (4.8-10.8)
[2022-09-08 16:14] LABS: Albumin Globulin Ratio 1.4 (0.9-2); Albumin Level 4.3 gm/dl (3.4-5.0); BUN Creatinine Ratio 18.6 (10-20); Bilirubin,Total 0.5 mg/dl (0.2-1.0); Calcium 8.9 mg/dl (8.5-10.1); Creatinine Clr Calc Pharmacy 77.7 ml/min; Est GFR (African American) 96.3 ml/min; Est GFR (Non-African American) 83.1 ml/min; Potassium 4.1 mmol/L (3.5-5.1); Total Protein 7.3 gm/dl (6.0-8.3)
--- NOTE | 2022-09-08 16:14 | XRay Report ---
XR chest 1V portable CLINICAL HISTORY: possible cva TECHNIQUE: Single frontal radiograph of the chest was obtained. Comparison: Comparison is made to chest radiograph 10/28/2019 FINDINGS: No lines and tubes are seen. Calcified aortic knob is seen. Prominence and cephalization of the vascu lature is seen. No evidence of pleural effusion or pneumothorax. IMPRESSION: Mild pulmonary edema. ACT 112: Negative or not required by law. Electronically signed by: Contreras Mckay M.D. 09/08/2022 4:13 PM
[2022-09-08] MEDS ORDERED: OPTIRAY 320 500ml IV ONE (16:24)
--- NOTE | 2022-09-08 16:52 | CT Scan Report ---
CT angio neck with con, CT angio head w con, CT head/brain wo con CLINICAL HISTORY: blanco, vision change TECHNIQUE: Contiguous axial CT images of the head were acquired from the base of the skull to the alysha berny without intravenous contrast administration. CT angiography of the head and neck was performed f ollowing intravenous administration of iodinated contrast. Coronal and sagittal MIPS were obtained fr om the axial data set and were submitted for review. Automated dose lowering techniques and/or adjus tment according to patient size were utilized for this examination. All measurements were calculated based on NASCET criteria. CT DOSE: 1938.80 mGy.cm Comparison: Comparison is made to CT head 11/07/2016 FINDINGS: CT head: There is no acute intracranial hemorrhage or evidence of acute territorial infarction. No sh ift of the midline structures, mass effect, or extra-axial abnormalities are shown. Emphysema is seen bilaterally. CTA Neck: Direct origin of the left vertebral artery from the aortic arch is seen. Severe stenosis of the left vertebral artery at its origin. Atherosclerotic plaque is present in the aortic arch and at the origin of the great vessels. The common carotid, external carotid, cervical s egments of the internal carotid arteries, and the cervical segments of the vertebral arteries are pat ent without hemodynamically significant stenosis. The vertebral arteries are codominant. CTA Head: The anterior and posterior cerebral circulations are patent. No hemodynamically significan t stenosis, aneurysm, dissection, or arteriovenous malformation is shown. origin of the right p osterior cerebral artery is seen. IMPRESSION: 1. No acute intracranial hemorrhage, evidence of acute territorial infarction, or other acute intrac ranial disease process. 2. There is severe stenosis of the left vertebral artery near the origin. Otherwise the great vessel s are without hemodynamically significant stenosis despite widespread atherosclerotic disease. 3. No occlusion, hemodynamically significant stenosis, aneurysm, dissection, or arteriovenous malfor mation in the major intracranial arteries. Assessment of stenosis of the internal carotid arteries is based on NASCET criteria. ACT 112: Negative or not required by law. Electronically signed by: Contreras Mckay M.D. 09/08/2022 4:49 PM
[2022-09-08] MEDS ORDERED: LABETALOL HCL IV 5 MG/ML 20ML IV STA ×2 (17:07→20:27)
--- NOTE | 2022-09-08 17:49 | Electrocardiogram Report ---
Test Reason : Blood Pressure : / mmHG Vent. Rate : 094 BPM Atrial Rate : 293 BPM P-R Int : 000 ms QRS Dur : 092 ms QT Int : 368 ms P-R-T Axes : 088 030 062 degrees QTc Int : 460 ms Atrial flutter with variable A-V block Abnormal ECG When compared with ECG of 28-OCT-2019 21:03, Atrial flutter has replaced Sinus rhythm Confirmed by Jovanni Beckett ([id number]) on 09/08/2022 5:49:39 PM Referred By: Confirmed By:Brodie Beckett
[2022-09-08] MEDS ORDERED: Heparin IV Adult Wt-Based Low-Dose WITH Bolus Protocol IV STA (18:09)
--- NOTE | 2022-09-08 18:12 | History & Physical Report ---
Date of Service September 08, 2022 Assessment & Plan (1) Vision changes: Plan: Vision change, CVA eval Blurry vision which improves with rest or intense focus. Differential includes CVA, hypertensive, and eyestrain Regular eye exams, no decreased visual acuity at last exam With new atrial flutter as noted below, echo pending -CXR: Mild pulmonary edema -CTAhead and neck: 1. No acute intracranial hemorrhage, evidence of acute territorial infarction, or other acute intracranial disease process. 2. There is severe stenosis of the left vertebral artery near the origin. Otherwise the great vessels are without hemodynamically significant stenosis despite widespread atherosclerotic disease. 3. No occlusion, hemodynamically significant stenosis, aneurysm, dissection, or arteriovenous malformation in the major intracranial arteries. -CThead: Anterior and posterior cerebral circulation patent. No hemodynamically significant stenosis, aneurysm, dissection, or AV malformation. Continue Plavix 75 mg daily Statin potency increased as noted MRI added No history of DM, A1c pending - trop wnl on admit, 2 hour trended Goal BP less than 180/110. Lopressor 5 mg on-call for hypertension Aflutter with variable block, rate controlled New, patient with no history of A. 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 in ER - Cardiology consulted Echo pending - MTP 25mg tartrate BID PO Hyperlipidemia Simvastatin increased to atorvastatin 40, increased to 80 pending lipid results Gout Continue allopurinol Sleep apnea CPAP nightly DVT prophylaxis: Lovenox Disposition: Med telemetry for stroke eval CODE STATUS: Full code (2) Cardiac murmur: (3) Atrial flutter: (4) Sleep apnea: (5) Peripheral vascular disease: (6) Hypertension: (7) Hyperlipidemia: (8) Gout: History of Present Illness Primary Care Provider: Jung Gaona MD Jack San is a 76-year-old male with a past medical history of hypertension, anemia, peripheral vascular disease, cardiac murmur, sleep apnea, hyperlipidemia, gout who presented with headache and vision change since 8:00 in the morning. Patient had a left frontal headache chills at 8:00 when he was working with computer and had slowly progressive vision changes patient could return his vision to normal by resting his eyes or concentrating very high. COVID 10 days ago. Woke up at 5am feeling normal, 8am working on his computer from home developed L sided dull headache in the front/L side followed by some blurry vision in that eye but noted had difficulty with L eye RIGHT FIELD loss looking at the clock, then with bilateral eye RIGHT FIELD loss which improved with intense focus and resting his eyes. Summe laura exam up to date, no acuity change. Hx of cataract surgery without issues. No hx migraines, no problems with headaches. Laid down and rested, headache and vision change persisted. No recent trauma/head injury. Day 10 of COVID. No symptoms for 5 days. No shortness of breath, ches tpain, cough, sinus pain, dizziness, lightheadedness, blaance change, sensory change, or weakness. HTN in ER. At bedside vision 50-80% back to normal. No ches tpain. No chest pressure. Headache is 80% gone. No lightheadedness/dizziness. No fever/chills/sweats/diarrhea/constipation/abdominal pain Medical History: Reviewed Medications: Reviewed Surgical History: Reviewed Allergies: Reviewed Social History: 2 packs/day x 20 years, former smoker quit 1977. No etoh. Code Status:Full Allergies Allergy/AdvReac Type Severity Reaction Status Date / Time latex AdvReac Rash Verified 09/08/22 15:59 Home Medications Medication Instructions Recorded Confirmed Type biotin 5,000 mcg disintegrating 1 tab PO QAM 10/15/18 09/08/22 History tablet cholecalciferol (vitamin D3) 25 1,000 unit PO BID 10/15/18 09/08/22 History mcg (1,000 unit) tablet (Vitamin D3) simvastatin 10 mg tablet 10 mg PO PM #90 tabs 07/16/21 09/08/22 Rx terazosin 5 mg capsule 5 mg PO QPM #90 caps 09/05/21 09/08/22 Rx clopidogrel 75 mg tablet 75 mg PO QAM #90 tabs 11/18/21 09/08/22 Rx allopurinol 100 mg tablet 100 mg PO QAM #90 tabs 12/05/21 09/08/22 Rx Past Med/Surg History Medical History Cardiac murmur 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 Pt made ASA 3. Tolerated GA with LMA #4 without issues History of colonoscopy History of esophagogastroduodenoscopy (EGD) History of tooth extraction wisdom teeth Status post femoral-popliteal bypass surgery 2013 bilateral @ [facility] Family History Mother Family hx of colon cancer Colon cancer Lung disease Brother Diabetes Father Myocardial infarction Aunt Myocardial infarction Uncle Myocardial infarction Other No family history of adverse response to anesthesia Denies family history of Ovarian cancer Prostate cancer Breast cancer Social History Smoking Status: Former smoker Tobacco Type: Cigarettes Second Hand Exposure: No; Hx Alcohol Use: Yes (occassional) Alcohol type: beer Hx Substance Use: No Preferred Language: Spanish Communication Ability: Effective 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 Feels Safe at Home: Yes Childhood Exposure to Second-Hand Smoke: Yes Dental Care, Regularly: Yes Physical Activity Frequency: Does not Exercise Seatbelt Use: always Sunscreen Use: Yes Assistive Devices: Glasses Review of Systems Review of Systems: All systems reviewed & are unremarkable except as noted in HPI & below Physical Exam Physical Exam: General: A&Ox3. NAD. Cooperative. HEENT: Atraumatic, normocephalic. Vision n LEFT EYE: Blurry in mid/R vision field, sharpens in periphery. No field cut. RIGHT EYE: Slightly blurry in medial field, normal for him. No field cuts. EoM intact. PERLAA. Pulm: CTAB A&P. -wheezes, -rales, -rhonchi. Symmetrical chest rise. No increased work of breathing. No respiratory distress. Cardiac: RRR, +sm. Radial pulses intact and symmetrical. Abdominal: Nontender, nondistended, soft. BS present. Ext: Warm, dry. Trace bilat ankle edema. Sensation intact to soft touch in hands and feet. Fulfillment Representative, hip flexion, ankle dorsi/plantar flexion 5/5. Results & Data Results & Data ([facility]) Vital Signs (Past 12 Hours) Vital Signs Temp Pulse Pulse Resp BP BP Pulse Ox 09/08/22 17:30 77 18 170/70 H 97 09/08/22 17:25 78 18 168/102 H 96 09/08/22 15:20 94 H 20 189/83 H 98 09/08/22 15:11 36.9 C 94 H 18 202/84 H 95 O2 Del Method 09/08/22 17:30 09/08/22 17:25 09/08/22 15:20 Room Air 09/08/22 15:11 Room Air PG Care Time/CCT Total # of Minutes Spent Total Time Spent with Patient: Total time spent is greater than 50% in coordination of care (as documented) at patient's floor/unit and/or counseling patient: Coding Level of Care Code INT OBSERVATION CARE 70M LVL 3 Diagnoses Vision changes H53.9 Cardiac murmur R01.1 Atrial flutter I48.92 Sleep apnea G47.30 Peripheral vascular disease I73.9 Hypertension I10 Hyperlipidemia E78.5 Gout M10.9
[2022-09-08] MEDS ORDERED: HEPARIN SOD (PORCINE) 1000 UNIT/ML IV ONE (18:24)
[2022-09-08] MEDS ORDERED: HEPARIN SODIUM/DEXTROSE 25,000 UNITS/500 ML BAG IV SCH (18:30)
[2022-09-08 19:45] LABS: Influenza A virus by PCR Negative (Neg); Influenza B virus by PCR Negative (Neg); RSV by PCR Negative (Neg)
[2022-09-08 20:07] LABS: SARS CoV2 RNA(COVID-19)Cepheid POSITIVE (Negative)
[2022-09-08] MEDS ORDERED: HEPARIN SOD (PORCINE) 1000 UNIT/ML ONE (20:36)
[2022-09-08 21:02] LABS: Partial Thromboplastin Time 26.8 Seconds (21.0-31.0)
[2022-09-08] MEDS: METOPROLOL TARTRATE 25 MG TAB PO SCH (21:31)
[2022-09-08] MEDS ORDERED: METOPROLOL TARTRATE 1 MG/ML VIAL IV PRN (22:57)
[2022-09-08] MEDS ORDERED: ONDANSETRON INJ 2 MG/ML 2 ML VIAL IV PRN (22:57)
[2022-09-08] MEDS ORDERED: PHARMACIST DISCHARGE MED REC CONSULT PRN (22:57)
[2022-09-09] MEDS: TERAZOSIN HCL 5 MG CAP PO SCH ×2 (01:08→19:25)
[2022-09-09] MEDS: SODIUM CHLORIDE 0.9% 1000ML 1,000 ML IV SCH ×4 (01:09→22:36)
[2022-09-09 03:42] LABS: Basophils # (auto) 0.02 K/uL (0-0.2); Basophils % (auto) 0.4 %; Eosinophils # (auto) 0.07 K/uL (0-0.50); Eosinophils % (auto) 1.2 %; Hematocrit (blood only) 37.4 % (40.1-51.0); Hemoglobin 12.5 g/dl (14.0-18.0); Immature Granulocytes # (auto) 0.03 K/uL (0.00-0.02); Immature Granulocytes % (auto) 0.5 %; Lymphocytes # (auto) 0.75 K/uL (1.2-3.4); Lymphocytes % (auto) 13.1 %; Mean Corpuscular Hemoglobin 31.6 pg (25.0-34.0); Mean Corpuscular Hgb Conc 33.4 g/dL (32.0-36.0); Mean Corpuscular Volume 94.7 fL (80.0-100.0); Mean Platelet Volume 9.2 fL (9.4-12.4); Monocytes # (auto) 0.54 K/uL (0.24-0.82); Monocytes % (auto) 9.5 %; Neutrophils % (auto) 75.3 %; Platelet Count 251 K/uL (130-400); RDW Coefficient of Variation 12.8 % (11.5-14.5); RDW Standard Deviation 44.5 fL (36.4-46.3); Red Blood Count 3.95 M/uL (4.63-6.08); White Blood Count 5.71 K/ul (4.8-10.8)
[2022-09-09 03:49] LABS: Partial Thromboplastin Ratio 1.1; Partial Thromboplastin Time 31.4 Seconds (21.0-31.0)
[2022-09-09 03:51] LABS: Albumin Globulin Ratio 1.5 (0.9-2); Albumin Level 3.8 gm/dl (3.4-5.0); BUN Creatinine Ratio 15.9 (10-20); Bilirubin,Total 0.4 mg/dl (0.2-1.0); Calcium 8.7 mg/dl (8.5-10.1); Chol HDL Ratio 2.9 (0-5); Creatinine Clr Calc Pharmacy 80.7 ml/min; Est GFR (African American) 98.2 ml/min; Est GFR (Non-African American) 84.7 ml/min; Globulin 2.6 gm/dl (2.5-4.0); Potassium 3.8 mmol/L (3.5-5.1); Total Protein 6.4 gm/dl (6.0-8.3)
[2022-09-09] MEDS ORDERED: HEPARIN IV BOLUS 3,000 UNITS in SYRINGE 0 ML IV ONE (05:00)
[2022-09-09 06:42] LABS: Estimated Average Glucose 108 mg/dl; Hemoglobin A1C 5.4 % (4.5-5.6)
--- NOTE | 2022-09-09 07:05 | Magnetic Resonance Report ---
MR brain wo con HISTORY: 76 years-old Male TIA/CVA eval acute headache with strokelike symptoms COMPARISON: Head CT 09/08/2022 TECHNIQUE: Multiplanar multisequence MRI of the brain was obtained without the use of IV contrast. FINDINGS: There is an area of approximately 8.5 cm of restricted diffusion within the left temporal occipital l obes with decreased signal on ADC map. This area demonstrates increased T2/FLAIR signal. Along the an terior margin of this signal abnormality there are 2 foci of blooming artifact measuring up to 1.9 cm which demonstrates intermediate T1 and T2 signal. Partially empty sella. Degenerative changes of the imaged cervical spine. Involutional changes with mild T2/FLAIR hyperintense foci throughout the whit e matter. No midline shift, hydrocephalus or abnormal extra-axial collections. Sinuses and major arterial flow voids appear patent. Prior bilateral lens repair. Skull and soft tiss ues are within normal limits. Mild mucosal thickening of the paranasal sinuses. The mastoid air cells appear clear. IMPRESSION: Large area of restricted diffusion with increased T2/FLAIR signal in the left temporal an d occipital lobes with a central 1.9 cm hemorrhagic focus. Findings may represent an acute infarct wi th cytotoxic edema versus herpes encephalitis. 24 hour follow-up head CT recommended. ACT 112: Negative or not required by law. The above report was generated using voice recognition software. It may contain grammatical, syntax o r spelling errors. Electronically signed by: Robin Valentine M.D. 09/09/2022 7:05 AM
[2022-09-09] MEDS ORDERED: HOLD HEPARIN DRIP ORDER ONE (07:45)
[2022-09-09] MEDS: ATORVASTATIN 40 MG TAB PO SCH (08:48)
[2022-09-09] MEDS: PANTOprazole 40 MG TAB PO SCH (08:48)
[2022-09-09] MEDS: allopurinoL 100 MG TAB PO SCH (08:48)
[2022-09-09] MEDS ORDERED: CLOPIDOGREL BISULFATE 75 MG TAB PO SCH (09:00)
--- NOTE | 2022-09-09 09:33 | Cardiology Consultation ---
Date of Consultation September 09, 2022 Assessment & Plan (1) Atrial flutter: (2) Cardiac murmur: (3) Status post femoral-popliteal bypass surgery: (4) Vision changes: (5) Peripheral vascular disease: Plan 1. Atrial flutter: He presented with atrial flutter but converted shortly after admission to a normal sinus rhythm. He was unaware of any palpitations. Overall rate control appear to be adequate at the time of presentation. Unclear if he has had other episodes of atrial flutter, but likely. Given the normal heart rates that is not surprising that he did not notice any significant elevated heart rates during his home monitoring with a blood pressure cuff. Clearly atrial arrhythmias such as atrial flutter put him at increased risk for cerebrovascular events. This could have played a role in his presentation due to a thromboembolic event. Do not believe any acute treatment is required now that he is back in sinus rhythm but I did discuss the option of catheter based therapy in order to eliminate recurrence. Can be deferred to the outpatient setting. Anticoagulation: I think the most important question is anticoagulation. I would recommend systemic anticoagulation with 1 of the novel oral anticoagulants. He would be a good candidate for either 20 mg of Xarelto daily or apixaban 5 mg b.i.d.. I will defer the timing of initiation to the neurologist as he did appear to have a small hemorrhagic focus on his MRI. From a cardiac standpoint he does not require any additional anti-platelet agents such as Plavix if he is on systemic anticoagulation. Again, I would defer continuation to the neurologists. They may feel there is some additional benefi t to continuing anti-platelet therapy. 2. Murmur: This seems to be related to aortic valve sclerosis without significant stenosis. 3. Peripheral vascular disease: This is certainly an equivalent for coronary disease. However, he does not have symptoms of coronary insufficiency or angina. Overall LV systolic function is normal without regional wall motion abnormalities. Would continue aggressive primary prevention efforts. No current symptoms of claudication. Good perfusion of both lower extremities. 4. Hyperlipidemia: Lipids at goal on moderate dose simvastatin. Triglycerides at goal. History of Present Illness Reason for Consultation: Atrial flutter Requesting Physician: Renetta Attending Physician: Natty Ortega MD History of Present Illness The patient is a 76-year-old gentleman without a known history of cardiac disease who presented to the hospital yesterday morning for symptoms of left eye trouble. He states that he had a visual field deficits which developed over the course of the morning. At the time of his presentation he was noted to be in atrial flutter. Patient was unaware of any palpitations. He states that prior to admission he was otherwise feeling well with exception of his ocular symptoms. He has a history of peripheral vascular disease and did undergo lower extremity bypass operation several years ago. This was performed for significant claudication. His symptoms have resolved and he is actually quite active. He maintains part-time employment at [employer]. He is able to walk extensively without limitation. No current claudication. No exertional dyspnea or chest discomfort. He has not been aware of any palpitations. He denies significant dizziness or lightheadedness. No history of syncope. Allergies Allergy/AdvReac Type Severity Reaction Status Date / Time latex AdvReac Rash Verified 09/18/22 11: Home Medications Medication Instructions Recorded Confirmed Type biotin 5,000 mcg disintegrating 1 tab PO QAM 10/15/18 09/18/22 History tablet cholecalciferol (vitamin D3) 25 1,000 unit PO BID 10/15/18 09/18/22 History mcg (1,000 unit) tablet (Vitamin D3) allopurinol 100 mg tablet 100 mg PO QAM #90 tabs 12/05/21 09/18/22 Rx acetaminophen 325 mg tablet 650 mg PO Q4H PRN pain #30 tabs 09/11/22 09/18/22 Rx apixaban 5 mg tablet (Eliquis) 5 mg PO BID #60 tabs 09/11/22 09/18/22 Rx atorvastatin 20 mg tablet 20 mg PO QAM #30 tabs 09/11/22 09/18/22 Rx terazosin 5 mg capsule 5 mg PO QPM #90 caps 09/15/22 09/18/22 Rx Patient History Medical History Acute CVA (cerebrovascular accident) Cardiac murmur Closed left ankle fracture Encounter for pre-operative examination Family history of colon cancer History of colon polyps Hyperlipidemia Hypertension On anticoagulant therapy Sleep apnea Upper GI bleed Surgical History History of angioplasty History of ankle surgery History of colonoscopy History of esophagogastroduodenoscopy (EGD) History of tooth extraction Status post femoral-popliteal bypass surgery Family History Mother Family hx of colon cancer Colon cancer Lung disease Brother Diabetes Father Myocardial infarction Aunt Myocardial infarction Uncle Myocardial infarction Other No family history of adverse response to anesthesia Denies family history of Ovarian cancer Prostate cancer Breast cancer Social History Smoking Status: Never smoker Tobacco Type: Cigarettes Second Hand Exposure: No; Hx Alcohol Use: Yes Alcohol type: beer Hx Substance Use: No Preferred Language: Czech Communication Ability: Effective Personal Computer Network Analyst Required: No Beliefs That Will Affect Care: None marital status: Current Living Situation: Spouse current occupational status: employed and 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 No recent fevers or chills. No significant constitutional symptoms. No coughing he denies sleeping difficulty. Some very mild lower extremity edema at the end of a long day on his feet but normal by morning. Physical Exam Physical Exam: The patient is alert and oriented. Mood and affect appeared normal. He answered all questions appropriately. HEENT: Pupils are equal and reactive to light and accommodation. Extraocular movements are intact. The sclerae are anicteric. Neuro: Cranial nerves intact Lungs: Clear to auscultation bilaterally. He has good air movement without use of accessory muscles. No rales wheezes or rhonchi. Cardiac: Heart demonstrates a regular rate and rhythm. Normal S1 and S2. Systolic murmur. Pulses: The patient has palpable radial pulses bilaterally that are equal in intensity Extremities: There was no evidence of hypoperfusion. There is no cyanosis or clubbing. There is no edema. Palpable dorsalis pedis bilaterally. Skin: I did not appreciate any rashes on examination today. Results & Data ([facility]) Vital Signs (Past 12 Hours) Vital Signs Temp Pulse Pulse Resp BP Pulse Ox O2 Del Method 09/09/22 07:38 36.8 C 77 18 138/66 98 Room Air 10/31/22 22:35 95 Room Air 09/09/22 03:30 36.8 C 76 16 144/78 H 96 Room Air 09/09/22 01:26 78 20 95 09/08/22 22:57 09/08/22 22:40 09/08/22 22:32 36.9 C 81 18 181/78 H 81 L Room Air O2 Del Method O2 Flow Rate FiO2 09/09/22 07:38 09/08/22 22:35 09/09/22 03:30 09/09/22 01:26 0 21 09/08/22 22:57 Room Air 09/08/22 22:40 0 21 09/08/22 22:32 Laboratory Results Abnormal Lab Results 09/08/22 09/08/22 09/08/22 15:23 15:23 15:23 WBC 5.78 RBC 4.49 L Hgb 14.0 POC Hgb Hct 41.7 POC Hct MCV 92.9 MCH 31.2 MCHC 33.6 RDW Std Deviation 43.0 RDW Coeff of Cesario 12.6 Plt Count 302 MPV 9.4 Immature Gran % (Auto) 0.2 Neut % (Auto) 82.1 Lymph % (Auto) 10.4 Mcleod % (Auto) 6.2 Eos % (Auto) 0.9 Baso % (Auto) 0.2 Neut # (Auto) 4.75 Lymph # (Auto) 0.60 L Mcleod # (Auto) 0.36 Eos # (Auto) 0.05 Baso # (Auto) 0.01 Immature Gran # (Auto) 0.01 ESR 30 H PT 10.9 INR 1.0 APTT PTT Ratio POC Sodium Sodium POC Potassium Potassium POC Chloride Chloride Carbon Dioxide POC Total CO2 Anion Gap POC Anion Gap POC BUN BUN Creatinine POC Creatinine Est Cr Clr Drug Dosing Est GFR ( Amer) Est GFR (Non-Af Amer) BUN/Creatinine Ratio Glucose POC Glucose (other) Estimat Average Glucose Hemoglobin A1c Calcium POC Ioniz Calcium Mili Magnesium Total Bilirubin AST ALT Alkaline Phosphatase Troponin I High Sens Total Protein Albumin Globulin Albumin/Globulin Ratio Triglycerides Cholesterol LDL Cholesterol, Calc VLDL Cholesterol, Calc HDL Cholesterol Cholesterol/HDL Ratio Lipase TSH SARS-CoV-2 (PCR) Influenza Type A (PCR) Influenza Type B (PCR) RSV (RT-PCR) 09/08/22 09/08/22 09/08/22 15:23 15:23 15:23 WBC RBC Hgb POC Hgb Hct POC Hct MCV MCH MCHC RDW Std Deviation RDW Coeff of Cesario Plt Count MPV Immature Gran % (Auto) Neut % (Auto) Lymph % (Auto) Mcleod % (Auto) Eos % (Auto) Baso % (Auto) Neut # (Auto) Lymph # (Auto) Mcleod # (Auto) Eos # (Auto) Baso # (Auto) Immature Gran # (Auto) ESR PT INR APTT 26.8 PTT Ratio 1.0 POC Sodium Sodium 137 POC Potassium Potassium 4.1 POC Chloride Chloride 103 Carbon Dioxide 26 POC Total CO2 Anion Gap 8 POC Anion Gap POC BUN BUN 16 Creatinine 0.86 POC Creatinine Est Cr Clr Drug Dosing 77.7 Est GFR ( Amer) 96.3 Est GFR (Non-Af Amer) 83.1 BUN/Creatinine Ratio 18.6 Glucose 112 H POC Glucose (other) Estimat Average Glucose Hemoglobin A1c Calcium 8.9 POC Ioniz Calcium Mili Magnesium 2.0 Total Bilirubin 0.5 AST 20 ALT 16 Alkaline Phosphatase 67 Troponin I High Sens 11.0 Total Protein 7.3 Albumin 4.3 Globulin 3.0 Albumin/Globulin Ratio 1.4 Triglycerides Cholesterol LDL Cholesterol, Calc VLDL Cholesterol, Calc HDL Cholesterol Cholesterol/HDL Ratio Lipase 23 TSH 2.488 SARS-CoV-2 (PCR) Influenza Type A (PCR) Influenza Type B (PCR) RSV (RT-PCR) 09/08/22 09/08/22 09/08/22 15:28 18:37 23:48 WBC RBC Hgb POC Hgb 14.3 Hct POC Hct 42 MCV MCH MCHC RDW Std Deviation RDW Coeff of Cesario Plt Count MPV Immature Gran % (Auto) Neut % (Auto) Lymph % (Auto) Mcleod % (Auto) Eos % (Auto) Baso % (Auto) Neut # (Auto) Lymph # (Auto) Mcleod # (Auto) Eos # (Auto) Baso # (Auto) Immature Gran # (Auto) ESR PT INR APTT PTT Ratio POC Sodium 138 Sodium POC Potassium 4.0 Potassium POC Chloride 101 Chloride Carbon Dioxide POC Total CO2 26 Anion Gap POC Anion Gap 16.0 POC BUN 15 BUN Creatinine POC Creatinine 0.8 Est Cr Clr Drug Dosing Est GFR ( Amer) Est GFR (Non-Af Amer) BUN/Creatinine Ratio Glucose POC Glucose (other) 115 H Estimat Average Glucose Hemoglobin A1c Calcium POC Ioniz Calcium Mili 1.16 Magnesium Total Bilirubin AST ALT Alkaline Phosphatase Troponin I High Sens 13.8 Total Protein Albumin Globulin Albumin/Globulin Ratio Triglycerides Cholesterol LDL Cholesterol, Calc VLDL Cholesterol, Calc HDL Cholesterol Cholesterol/HDL Ratio Lipase TSH SARS-CoV-2 (PCR) POSITIVE A* Influenza Type A (PCR) Negative Influenza Type B (PCR) Negative RSV (RT-PCR) Negative 09/09/22 09/09/22 09/09/22 03:23 03:23 03:24 WBC 5.71 RBC 3.95 L Hgb 12.5 L POC Hgb Hct 37.4 L POC Hct MCV 94.7 MCH 31.6 MCHC 33.4 RDW Std Deviation 44.5 RDW Coeff of Cesario 12.8 Plt Count 251 MPV 9.2 L Immature Gran % (Auto) 0.5 Neut % (Auto) 75.3 Lymph % (Auto) 13.1 Mcleod % (Auto) 9.5 Eos % (Auto) 1.2 Baso % (Auto) 0.4 Neut # (Auto) 4.30 Lymph # (Auto) 0.75 L Mcleod # (Auto) 0.54 Eos # (Auto) 0.07 Baso # (Auto) 0.02 Immature Gran # (Auto) 0.03 H ESR PT INR APTT 31.4 H PTT Ratio 1.1 POC Sodium Sodium 140 POC Potassium Potassium 3.8 POC Chloride Chloride 107 Carbon Dioxide 29 POC Total CO2 Anion Gap 4 POC Anion Gap POC BUN BUN 13 Creatinine 0.82 POC Creatinine Est Cr Clr Drug Dosing 80.7 Est GFR ( Amer) 98.2 Est GFR (Non-Af Amer) 84.7 BUN/Creatinine Ratio 15.9 Glucose 108 H POC Glucose (other) Estimat Average Glucose Hemoglobin A1c Calcium 8.7 POC Ioniz Calcium Mili Magnesium Total Bilirubin 0.4 AST 15 ALT 13 Alkaline Phosphatase 63 Troponin I High Sens Total Protein 6.4 Albumin 3.8 Globulin 2.6 Albumin/Globulin Ratio 1.5 Triglycerides 73 Cholesterol 141 LDL Cholesterol, Calc 77 VLDL Cholesterol, Calc 15 HDL Cholesterol 49 Cholesterol/HDL Ratio 2.9 Lipase TSH SARS-CoV-2 (PCR) Influenza Type A (PCR) Influenza Type B (PCR) RSV (RT-PCR) 09/09/22 03:24 WBC RBC Hgb POC Hgb Hct POC Hct MCV MCH MCHC RDW Std Deviation RDW Coeff of Cesario Plt Count MPV Immature Gran % (Auto) Neut % (Auto) Lymph % (Auto) Mcleod % (Auto) Eos % (Auto) Baso % (Auto) Neut # (Auto) Lymph # (Auto) Mcleod # (Auto) Eos # (Auto) Baso # (Auto) Immature Gran # (Auto) ESR PT INR APTT PTT Ratio POC Sodium Sodium POC Potassium Potassium POC Chloride Chloride Carbon Dioxide POC Total CO2 Anion Gap POC Anion Gap POC BUN BUN Creatinine POC Creatinine Est Cr Clr Drug Dosing Est GFR ( Amer) Est GFR (Non-Af Amer) BUN/Creatinine Ratio Glucose POC Glucose (other) Estimat Average Glucose 108 Hemoglobin A1c 5.4 Calcium POC Ioniz Calcium Mili Magnesium Total Bilirubin AST ALT Alkaline Phosphatase Troponin I High Sens Total Protein Albumin Globulin Albumin/Globulin Ratio Triglycerides Cholesterol LDL Cholesterol, Calc VLDL Cholesterol, Calc HDL Cholesterol Cholesterol/HDL Ratio Lipase TSH SARS-CoV-2 (PCR) Influenza Type A (PCR) Influenza Type B (PCR) RSV (RT-PCR) Diagnostic Findings Brain MRI demonstrated an abnormal lesion in the left occipital and temporal region. 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 Contrast was injected there was no evidence of a PFO. ECG Additional Comments: EKG obtained the time admission revealed atrial flutter with controlled ventricular rate. PG Care Time/CCT Total # of Minutes Spent Total Time Spent with Patient: Total time spent is greater than 50% in coordination of care (as documented) at patient's floor/unit and/or counseling patient: Coding Level of Care Code 65948 Initial Inpt Care Lvl 3 Diagnoses Atrial flutter I48.92 Cardiac murmur R01.1 Status post femoral-popliteal bypass surgery Z95.828 Vision changes H53.9 Peripheral vascular disease I73.9
[2022-09-09] MEDS: METOPROLOL TARTRATE 25 MG TAB PO SCH ×2 (10:08→19:25)
--- NOTE | 2022-09-09 10:31 | Neurology Consultation ---
Date of Consultation September 09, 2022 Assessment & Plan (1) Hemorrhagic stroke: Plan 76-year-old male with presenting with acute onset headache and right visual field deficit due to what looks like an acute left temporal occipital infarct with an associated 1.9 cm hemorrhagic focus with associated cytotoxic edema. HSV encephalitis was considered in the imaging differential. However, this patient does not have fever, nuchal rigidity, altered mental status, or altered mental status. Further, his presenting symptoms of headache and vision loss were rather acute, and in fact, has subsequently resolved. He looks clinically well. Therefore, HSV encephalitis would seem to be much less likely. He was on clopidogrel at the time of presentation. This medication is currently on hold. He did have a follow-up CT of the head completed today that reveals an evolving hemorrhagic stroke within the left temporal occipital lobe with associated cytotoxic edema. There does not appear to be any signs of midbrain or brainstem compression on imaging at this time, and again, patient appeared clinically well this morning. Continue to hold clopidogrel. Continue management of blood pressure, systolic blood pressure goal 140 to 160 mmHg. May allow for permissive hypertension within this range. The severe stenosis within the left vertebral artery at its origin would not be considered symptomatic. Medical management is typically recommended for vertebral artery stenosis, there is no defined role for stenting or revascularization procedures. Again, however, we are holding clopidogrel in light of the hemorrhagic stroke as above. Recent ECG does reveal atrial flutter with variable AV block. A cardioembolic stroke is certainly in consideration at this time, continue cardiac monitoring. In any event, if patient is found to have atrial fibrillation, would need to hold on starting an anticoagulant given the presence of hemorrhage as above. Would be able to start an anticoagulant such as Eliquis, if necessary, once the hemorrhagic focus has improved or resolved. In this patient's case, however, would likely need to wait 1 or 2 weeks in that context. Again, this patient does not have signs or symptoms suggestive of HSV encephalitis. I do not think he needs treatment with acyclovir or a lumbar puncture at this time. However, if his clinical status were to significantly deteriorate, (i.e. encephalopathy, seizures, progressive neurologic deficit, without significant change in neuro imaging, would consider starting acyclovir and obtaining lumbar puncture.) Would recommend obtaining a repeat noncontrast CT of the head in 5 or 6 hours. Continue close monitoring of patient's neurological status. If there is evidence of progressive hemorrhage and cytotoxic edema on follow-up scan, would need to recommend transfer to a tertiary center for neurosurgical care. Case discussed with Dr. Ortega. History of Present Illness Reason for Consultation: stroke Requesting Physician: Dr. Ortega Attending Physician: Natty Ortega MD History of Present Illness The patient is a 76-year-old male with a chief complaint of headache and associated vision loss to the right that began acutely yesterday morning at around 8 AM. The symptoms have resolved. He denies experiencing any associated change in speech, vertigo, hearing loss, focal weakness, or difficulty with standing or gait. He did have COVID 10 days ago complicated by anosmia. A CT of the head completed yesterday did reveal hypodensity within the left occipital and medial temporal lobes potentially consistent with an evolving infarct per my independent review of the images. This finding was not specifically discussed in the radiology report. CT angiography of the head and neck did reveal a severe stenosis of the left vertebral artery at its origin as well as widespread atherosclerotic disease. A noncontrast brain MRI revealed a large area of restricted diffusion with increased T2/flair signal in the left temporal and occipital lobes with a central 1.9 cm hemorrhagic focus. Findings potentially consistent with an acute infarct with cytotoxic edema versus potentially HSV encephalitis. Follow-up CT of the head in 24 hours was recommended. I independently reviewed these images as well and agree with the findings as described by the interpreting radiologist. A follow-up CT of the head completed this morning does not fact reveal an evolving hemorrhagic focus within the left temporal infarct, not seen on the initial CT of the head per my review of the images, official radiology report pending at this time. Patient was hypertensive at the time of presentation, 202/84. Current blood pressure 138/66. Allergies Allergy/AdvReac Type Severity Reaction Status Date / Time latex AdvReac Rash Verified 09/08/22 15:59 Home Medications Medication Instructions Recorded Confirmed Type biotin 5,000 mcg disintegrating 1 tab PO QAM 10/15/18 09/08/22 History tablet cholecalciferol (vitamin D3) 25 1,000 unit PO BID 10/15/18 09/08/22 History mcg (1,000 unit) tablet (Vitamin D3) simvastatin 10 mg tablet 10 mg PO PM #90 tabs 07/16/21 09/08/22 Rx terazosin 5 mg capsule 5 mg PO QPM #90 caps 09/05/21 09/08/22 Rx clopidogrel 75 mg tablet 75 mg PO QAM #90 tabs 11/18/21 09/08/22 Rx allopurinol 100 mg tablet 100 mg PO QAM #90 tabs 12/05/21 09/08/22 Rx Patient History Medical History 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 Pt made ASA 3. Tolerated GA with LMA #4 without issues History of colonoscopy History of esophagogastroduodenoscopy (EGD) History of tooth extraction wisdom teeth Status post femoral-popliteal bypass surgery 2013 bilateral @ [facility] [place] Family History Mother Family hx of colon cancer Colon cancer Lung disease Brother Diabetes Father Myocardial infarction Aunt Myocardial infarction Uncle Myocardial infarction Other No family history of adverse response to anesthesia Denies family history of Ovarian cancer Prostate cancer Breast cancer Social History Smoking Status: Never smoker Tobacco Type: Cigarettes Second Hand Exposure: No; Hx Alcohol Use: Yes Alcohol type: beer Hx Substance Use: No Preferred Language: [place] Communication Ability: Effective Multimedia Authoring Specialist Required: No Beliefs That Will Affect Care: None marital status: Current Living Situation: Spouse current occupational status: employed and retired 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 [employer] Feels Safe at Home: Yes Safety Concerns: Feels Safe At This Time Childhood Exposure to Second-Hand Smoke: Yes Dental Care, Regularly: Yes Physical Activity Frequency: Does not Exercise Seatbelt Use: always Sunscreen Use: Yes Assistive Devices: Glasses Review of Systems Constitutional: no fever and no chills Eyes: as per Subjective / HPI Ear, Nose, Mouth, Throat: no hearing loss Respiratory: no cough and no dyspnea Cardiovascular: no chest pain and no palpitations Gastrointestinal: no nausea and no vomiting Genitourinary: no dysuria Musculoskeletal: no myalgia Integumentary: no rash and no lesions Neurologic: as per Subjective / HPI Psychiatric: no depression and no anxiety Hematologic / Lymphatic: no easy bleeding and no easy bruising Exam (Neuro) Constitutional: well developed and well nourished; no acute distress Eyes: normal visual metzger by confrontation, PERRL, normal accommodation and EOM intact bilaterally; no fundoscopic abnormality, no nystagmus and no papilledema Cardiovascular: Vessels: normal carotid upstroke; no carotid bruit Neurologic: Oriented to:: Person, Place and Time Memory: Short Term Intact and Remote Intact Attention: Span Intact and Concentration Intact Language: Naming Objects and Repeating Phrases Speech Fluency: negative Dysarthria Speech Aphasia: negative Aphasia Fund of Knowledge: Current Events, Past History and Vocabulary Cranial Nerves: Normal II (Visual metzger full to confrontation, visual acuity normal), III, IV, (Pupils equal round reactive to light and accommodation, eye movements normal), V (Facial sensation intact), VII (There is no facial droop or weakness), VIII (Hearing intact), IX, X (Palate elevates to midline), XI (Shoulder shrug intact) and XII (Tongue protrudes to midline) Motor Strength: Normal Lower Extremities and Normal Upper Extremities; negative Pronator Drift Motor Tone: Normal Lower Extremities and Normal Upper Extremities Muscle Bulk/Involuntary Movements: No Involuntary Movements; negative Muscle Atrophy Sensation: Light Touch Intact, Pain/Temperature Intact, Vibration Intact and Proprioception Intact Coordination: Normal; negative Limited Balance, Dysdiadochokinesia, Finger-Nose Abnormal or Heel-Oconnor Abnormal Deep Tendon Reflexes: Rt Triceps: 2+, Lt Triceps: 2+, Rt Biceps: 2+, Lt Biceps: 2+, Rt Brachioradialis: 2+, Lt Brachioradialis: 2+, Rt Patellar: 2+, Lt Patellar: 2+, Rt Ankle: 2+ and Lt Ankle: 2+ Special Tests: negative Babinski Present Gait: Normal Station and Gait Details: No nuchal rigidity on examination. Results & Data ([facility]) Vital Signs (Past 12 Hours) Vital Signs Temp Pulse Pulse Resp BP Pulse Ox O2 Del Method 09/09/22 10:07 77 09/09/22 07:38 36.8 C 77 18 138/66 98 Room Air 09/08/22 22:35 95 Room Air 09/09/22 03:30 36.8 C 76 16 144/78 H 96 Room Air 09/09/22 01:26 78 20 95 09/08/22 22:57 09/08/22 22:40 09/08/22 22:32 36.9 C 81 18 181/78 H 81 L Room Air O2 Del Method O2 Flow Rate FiO2 09/09/22 10:07 09/09/22 07:38 09/08/22 22:35 09/09/22 03:30 09/09/22 01:26 0 21 09/08/22 22:57 Room Air 09/08/22 22:40 0 21 09/08/22 22:32 Laboratory Results WBC 5.71, hemoglobin 12.5, hematocrit 37.4, platelet count 251, sodium 140, potassium 3.8, BUN 13, creatinine 0.82, glucose 108, hemoglobin A1c 5.4, AST 15, ALT 13, triglycerides 73, cholesterol 141, LDL 77, VLDL 15, HDL 49, TSH 2.488, SARS-CoV-[address] Findings [address] of the head, CT angiography of the head and neck, brain MRI, and follow-up CT of the head results are as described in the history of present illness. I independently reviewed the images as well as the radiologist's interpretation of these tests. Electrocardiogram revealed atrial flutter, 94 bpm. Coding Level of Care Code 86512 Initial Inpt Care Lvl 3 Diagnoses Hemorrhagic stroke I61.9
[2022-09-09 11:51] LABS: Partial Thromboplastin Ratio 0.9; Partial Thromboplastin Time 25.6 Seconds (21.0-31.0)
--- NOTE | 2022-09-09 13:54 | CT Scan Report ---
CT OF THE HEAD WITHOUT CONTRAST CLINICAL HISTORY: f/u ICH COMPARISON STUDY: Head CT and CTA of the head September 08, 2022. MRI of the brain performed earlier t [place]. CT DOSE: 823.12 mGy.cm TECHNIQUE: Helical axial images of the head were obtained without IV contrast. Automated exposure con trol was utilized for the study. A dose lowering technique was utilized adhering to the principles o f ALARA. FINDINGS: Note is made of hypodensity with loss of yang-white differentiation within the medial left temporal lobe extending into the left occipital lobe. Extent is similar to prior MRI and head CT. A 1 .7 cm focus of acute hemorrhage within the left temporal lobe is new since prior head CT. This was sh own on MRI. There is an adjacent smaller focus of hemorrhage which was also shown on MRI. There is mi ld mass effect from the infarct is no midline shift. Ventricular system is stable. Basal cisterns are patent. There are no extra-axial collections. Sinus mucosal thickening. IMPRESSION: Hypodensity with loss of yang-white differentiation within the left temporal and occipita l lobes with associated hemorrhagic foci, similar to MRI performed earlier today. Stable mild mass ef fect. The findings favor an acute infarct with hemorrhagic conversion. Herpes encephalitis could appe ar similar although is considered less likely. Follow-up head CT in 24 hours is recommended. ACT 112: Negative or not required by law. Electronically signed by: Gerson Nichols M.D. 09/09/2022 1:53 PM
--- NOTE | 2022-09-09 14:31 | XCELERA ---
[id number]
--- NOTE | 2022-09-09 17:15 | CT Scan Report ---
HEAD CT NONCONTRAST CT DOSE: 994.59 mGy.cm HISTORY: Follow-up intracranial hemorrhage. TECHNIQUE: Multiaxial CT images of the head were performed without the use of intravenous contrast. A utomated exposure control was utilized for this study. A dose lowering technique was utilized adheri ng to the principles of ALARA. Comparison: Head CT 09/09/2022. Findings: Mild mucosal thickening within the paranasal sinuses. The mastoid air cells are clear. The calvarium and skull base are intact. Left medial temporal lobe and left occipital lobe hypodensity is again noted and favors expected evolution of a left TITLE CURATOR territory infarct. Focus of intracranial hem orrhage centered within the left temporal lobe hypodensity has slightly progressed. This currently me asures 2.1 x 2.0 cm, previously measuring 1.9 x 1.7 cm. No additional areas of intracranial hemorrhag e identified. The ventricles remain stable in size. No significant midline shift. Minimal mass effect of the left temporal lobe remains unchanged. Impression: Redemonstration of the hypodensity within the left temporal/occipital lobes suggesting expected evolu tion of a left TITLE CURATOR territory infarct. The hemorrhagic focus within the left temporal lobe has slightl y progressed as described above. Continued [address] follow-up recommended. This report was grace led/faxed to the referring physician following dictation. ACT 112: Negative or not required by law. Electronically signed by: Shekhar Lou M.D. 09/09/2022 5:12 PM
--- NOTE | 2022-09-09 18:21 | Hospitalist Progress Note ---
Date of Service September 09, 2022 Assessment & Plan (1) Acute CVA (cerebrovascular accident): Plan: large 8.5 cm left temporal occipital region and now with hemorrhagic conversion 1.9 cm centrally No encephalopathy or concern otherwise for HSV encephaliaitis as per my d/w Neuro, no need for LP Was in new onset A-flutter on admission which makes CVA likely cardioembolic Does have known PAD, HTN CTA head/neck only with severe stenosis left vertebral artery near origin -follow serial CT for hemorrhage -appreciate Neuro consult-no need for transfer out unless has evidence of expanding ICH -keep BP between 140-160 systolic -check ECHO -monitor on tele-now in sinus -avoid anticoagulation and hold home Plavix for now -check lipids-good, continue high intensity statin -HgbA1C normal 5.4% -continue Neuro checks -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 serial CT head (4) Atrial flutter: Plan: Aflutter with variable block, rate controlled, now in sinus New, patient with no history of A. fib/a flutter -holding AC due to ICH as above - Cardiology [id number] for A-flutter ablation in a few weeks Echo pending - continue metoprolol 25mg tartrate BID PO -monitor on tele (5) Sleep apnea: Plan: continue CPAP hs (6) Peripheral vascular disease: Plan: holding home Plavix for ICH continue statin has a fem-pop bypass (7) Hypertension: Plan: BPs stable, keep between 140-160 due to ICH and acute CVA continue metoprolol which was started this admission continue hytrin (8) Hyperlipidemia: Plan: changed to high intensity atorvastatin (9) Gout: Plan: Continue allopurinol (10) Status post femoral-popliteal bypass surgery: Plan: as above Plan DVT proph- add SCDs Dispo-continued stay PCU, transfer out if ICH expands Admission and Anticipated Discharge Date Admission Date: September 08, 2022 Subjective Pt feels better overall than yesterday. Headache is much better and vision is improving. Just feels like his memory short term is slightly off. He denies CP, SOB, nausea/vomiting, abd pain. Is eating and drinking, denies weakness or numbness. I discussed his care with Neurology multiple times throughout the day after each CT head result as well. Also discussed his care with Cardiology. Tele with NSR, PACs, normal rates, no further a-flutter. Review of Systems Review of Systems: All systems reviewed & are unremarkable except as noted in HPI & below Physical Exam Constitutional: WD/WN, vitals as above Eyes: PERRL, conjunctivae normal, anicteric sclerae EOM intact bilaterally; no anisocoria and no nystagmus ENMT: external ear and nose normal, oropharynx normal Neck: trachea midline, no thyromegaly Respiratory: normal respiratory effort, lungs clear to auscultation Cardiovascular: RRR, no murmur, no edema Chest (Breasts): Chest: normal inspection of chest Gastrointestinal (Abdomen): normal bowel sounds, soft, nontender, no hepatosplenomegaly Musculoskeletal: Extremities: extremities normal to inspection; no cyanosis and no clubbing Skin: no rashes, warm and dry Neurologic: moves all extremities and awake; no focal motor deficits Speech / Cognition: normal speech Motor/Sensory: no tremor, no pronator drift and no sensory deficit CN 2- 12 intact except slight visual field deficit right side Psychiatric: A+Ox3, euthymic affect Lymphatic: no lymphedema Results & Data Results & Data ([facility]) Vital Signs (Past 12 Hours) Vital Signs Temp Pulse Pulse Resp BP Pulse Ox O2 Del Method 09/09/22 15:39 70 09/09/22 10:07 77 09/09/22 07:38 36.8 C 77 18 138/66 98 Room Air PG Care Time/CCT Total # of Minutes Spent Total Time Spent with Patient: Total time spent is greater than 50% in coordination of care (as documented) at patient's floor/unit and/or counseling patient: Coding Level of Care Code 51950 Subseq Hosp Care Lvl 3 Diagnoses Acute CVA (cerebrovascular accident) I63.9 Vision changes H53.9 Intracranial hemorrhage I62.9 Atrial flutter I48.92 Sleep apnea G47.30 Peripheral vascular disease I73.9 Hypertension I10 Hyperlipidemia E78.5 Gout M10.9 Status post femoral-popliteal bypass surgery Z95.828
[2022-09-10] MEDS: SODIUM CHLORIDE 0.9% 1000ML 1,000 ML IV SCH ×3 (06:45→22:40)
[2022-09-10 07:29] LABS: BUN Creatinine Ratio 14.3 (10-20); Calcium 8.6 mg/dl (8.5-10.1); Creatinine Clr Calc Pharmacy 86.5 ml/min; Est GFR (African American) 100.7 ml/min; Est GFR (Non-African American) 86.9 ml/min
[2022-09-10] MEDS ORDERED: ACETAMINOPHEN 325 MG TAB PO PRN (07:54)
[2022-09-10] MEDS: METOPROLOL TARTRATE 25 MG TAB PO SCH ×2 (08:30→20:00)
[2022-09-10] MEDS: PANTOprazole 40 MG TAB PO SCH (08:30)
[2022-09-10] MEDS: ATORVASTATIN 40 MG TAB PO SCH (08:31)
[2022-09-10] MEDS: allopurinoL 100 MG TAB PO SCH (08:31)
--- NOTE | 2022-09-10 11:58 | Neurology Progress Note ---
Date of Service September 10, 2022 Assessment & Plan (1) Hemorrhagic stroke: Plan Hemorrhagic stroke within the medial left temporal lobe extending to the occipital lobe. Patient does not have an obvious visual field deficit with confrontation testing although he will need formal outpatient visual metzger completed with ophthalmology. He does not have other associated neurologic deficits, no facial droop or hemiparesis. No aphasia. He continues to look well and again, does not have headache, fever, or neck stiffness, no signs or symptoms suggestive of encephalitis. I suspect this patient's stroke was cardioembolic. He has had atrial flutter. I note that his left atrium is moderately dilated. He should have outpatient 30-day mobile cardiac telemetry. Continue to hold Plavix for the time being. He should be able to restart this medication once we have proven his intracranial hemorrhage is stable/improving. I would recommend completion of a repeat noncontrast CT of the head tomorrow morning. Beyond that, would recommend another follow-up noncontrast CT of the head 1 week after discharge. If the hemorrhage is improving or stable at that time, he should be able to safely restart his Plavix. I would also recommend reducing his dosage of atorvastatin to 20 mg/day. If further cardiac monitoring does reveal atrial fibrillation, would need to consider starting a direct oral anticoagulant such as Eliquis. If he were to start Eliquis, would likely recommend switching from Plavix to daily low-dose aspirin, however. Admission and Anticipated Discharge Date Admission Date: September 09, 2022 Subjective Follow-up for hemorrhagic stroke The patient reports that he has been feeling well. He denies headache, vertigo, vision disturbance, focal weakness, sensory loss, or difficulty with balance or walking. He did have a follow-up CT of the head completed this morning which does reveal some expected evolutionary change in the previously identified medial left temporal lobe infarct with hemorrhagic focus. The radiolucency or cytotoxic edema is mildly more prominent posteriorly. The size of the hemorrhagic focus is about the same compared to the previous study. There does not appear to be significant mass-effect upon the midbrain or brainstem. I independently reviewed these images, the official radiology report is pending at this time. Review of Systems Constitutional: no fever and no chills Eyes: no blind spots and no diplopia Neurologic: no localized weakness, no loss of sensation and no headache(s) Results & Data ([facility]) Vital Signs (Past 12 Hours) Vital Signs Temp Pulse Pulse Resp BP Pulse Ox O2 Del Method 09/10/22 10:34 36.7 C 67 19 128/60 96 Room Air 09/10/22 10:33 74 09/10/22 07:54 37.2 C 70 18 146/85 H 95 Room Air 09/10/22 03:01 36.4 C L 82 18 139/61 93 CPAP 09/10/22 02:14 74 19 93 09/10/22 00:16 76 20 91 O2 Flow Rate FiO2 09/10/22 10:34 09/10/22 10:33 09/10/22 07:54 09/10/22 03:01 09/10/22 02:14 0 21 09/10/22 00:16 Exam (Neuro) Neurologic: Oriented to:: Person, Place and Time Attention: Span Intact and Concentration Intact Speech Fluency: negative Dysarthria or Dysfluency Fund of Knowledge: Current Events, Past History and Vocabulary Cranial Nerves: Normal II, III, IV, , V, VII, VIII, IX, X, XI and XII Motor Strength: Normal Lower Extremities and Normal Upper Extremities Muscle Bulk/Involuntary Movements: No Involuntary Movements Coordination: Normal; negative Limited Balance, Finger-Nose Abnormal or Heel-Oconnor Abnormal Gait: Normal Station and Gait Coding Level of Care Code 00476 Subseq Hosp Care Lvl 2 Diagnoses Hemorrhagic stroke I61.9
--- NOTE | 2022-09-10 13:45 | CT Scan Report ---
HEAD CT NONCONTRAST CT DOSE: 821.00 mGycm HISTORY: Follow-up intracranial hemorrhage. TECHNIQUE: Multiaxial CT images of the head were performed without the use of intravenous contrast. A utomated exposure control was utilized for this study. A dose lowering technique was utilized adheri ng to the principles of ALARA. Comparison: Head CT 09/09/2022. Findings: Mild mucosal thickening within the paranasal sinuses persist. The mastoid air cells are ívctor ar. The calvarium and skull base are intact. No significant change in the hypodensity within the left medial temporal lobe and left occipital lobe consistent with expected evolution of the left NURSING HOME ASSISTANT terr itory infarct. The left medial temporal lobe intracranial hemorrhage is also similar to the prior fabrice dy and measures approximately 2.1 x 1.6 cm. No new areas of intracranial hemorrhage identified. The v entricles are stable in size. Mild mass effect within the left temporal lobe remains unchanged. No mi dline shift. Impression: No significant change in the small left medial temporal lobe intracranial hematoma with an associated evolving left NURSING HOME ASSISTANT territory infarct. ACT 112: Negative or not required by law. Electronically signed by: Shekhar Lou M.D. 09/10/2022 1:43 PM
--- NOTE | 2022-09-10 19:06 | Hospitalist Progress Note ---
Date of Service September 10, 2022 Assessment & Plan (1) Acute CVA (cerebrovascular accident): Plan: large 8.5 cm left temporal occipital region and now with hemorrhagic conversion 1.9 -2.1 cm centrally No encephalopathy or concern otherwise for HSV encephalitis as per my d/w Neuro, no need for LP Was in new onset A-flutter on admission which makes CVA likely cardioembolic Does have known PAD, HTN CTA head/neck only with severe stenosis left vertebral artery near origin serial CT head without evidence of expansion Neuro deficits improving No altered mentation -follow serial CT for hemorrhage-check again AM and then if stable, can possibly be discharged and repeat head CT in 1 week as per Neuro -appreciate Neuro consult-no need for transfer out unless has evidence of expanding ICH -keep BP between 140-160 systolic -check ECHO-neg bubble study, no thrombus, preserved EF, mild Pulm HTN -monitor on tele-now in sinus--> will discuss with Cardiology about need for event monitor -avoid anticoagulation and hold home Plavix for now-patient requests Vascular be involved to see how long safe to be off his Plavix -check lipids-good, continue high intensity statin but reduce dose due to increased risk of bleeding with high intensity statin and has ICH -HgbA1C normal 5.4% -continue Neuro checks -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 serial CT head (4) Atrial flutter: Plan: Aflutter with variable block, rate controlled, now in sinus New, patient with no history of A. fib/a flutter -holding AC due to ICH as above - Cardiology [id number] for A-flutter ablation in a few weeks Echo as above - continue metoprolol 25mg tartrate BID PO -monitor on tele (5) Sleep apnea: Plan: continue CPAP hs (6) Peripheral vascular disease: Plan: holding home Plavix for ICH continue statin has a fem-pop bypass -will d/w Vascular about if need for ASA or Plavix once goes on Eliquis or Xarelto (7) Hypertension: Plan: BPs stable, keep between 140-160 due to ICH and acute CVA continue metoprolol which was started this admission continue hytrin (8) Hyperlipidemia: Plan: changed to moderate intensity atorvastatin (9) Gout: Plan: Continue allopurinol (10) Status post femoral-popliteal bypass surgery: Plan: as above Plan DVT proph- SCDs Dispo-continued stay PCU, transfer out if ICH expands but seems improved. Possible discharge to home tomorrow Admission and Anticipated Discharge Date Admission Date: September 09, 2022 Subjective Pt feels well, only very mild headache. Feels vision is improved. No new sympt oms. has been ambulating around the room and in his chair all day Tele with NSR, a lot of PACs, normal rates Review of Systems Review of Systems: All systems reviewed & are unremarkable except as noted in HPI & below Physical Exam Constitutional: WD/WN, vitals as above Eyes: PERRL, conjunctivae normal, anicteric sclerae EOM intact bilaterally; no anisocoria and no nystagmus ENMT: external ear and nose normal, oropharynx normal Neck: trachea midline, no thyromegaly Respiratory: normal respiratory effort, lungs clear to auscultation Cardiovascular: RRR, no murmur, no edema Chest (Breasts): Chest: normal inspection of chest Gastrointestinal (Abdomen): normal bowel sounds, soft, nontender, no hepatosplenomegaly Musculoskeletal: Extremities: extremities normal to inspection; no cyanosis and no clubbing Skin: no rashes, warm and dry Neurologic: moves all extremities and awake; no focal motor deficits Speech / Cognition: normal speech Motor/Sensory: no tremor, no pronator drift and no sensory deficit Psychiatric: A+Ox3, euthymic affect Lymphatic: no lymphedema Results & Data Results & Data ([facility]) Vital Signs (Past 12 Hours) Vital Signs Temp Pulse Pulse Resp BP BP Pulse Ox 09/10/22 16:39 72 09/10/22 14:01 36.9 C 72 20 149/66 H 95 09/10/22 10:34 36.7 C 67 19 128/60 96 09/10/22 10:33 74 09/10/22 07:54 37.2 C 70 18 146/85 H 95 O2 Del Method 09/10/22 16:39 09/10/22 14:01 Room Air 09/10/22 10:34 Room Air 09/10/22 10:33 09/10/22 07:54 Room Air Laboratory Results 09/09/22 03:24 09/10/22 06:26 Diagnostic Findings I personally reviewed the CT head images and agree with the following report: Head CT 09/10/22 08:[address] DOSE: 821.00 mGycm HISTORY: Follow-up intracranial hemorrhage. TECHNIQUE: Multiaxial CT images of the head were performed without the use of intravenous contrast. Automated exposure control was utilized for this study. A dose lowering technique was utilized adhering to the principles of ALARA. Comparison: Head CT 09/09/2022. Findings: Mild mucosal thickening within the paranasal sinuses persist. The mastoid air cells are clear. The calvarium and skull base are intact. No significant change in the hypodensity within the left medial temporal lobe and left occipital lobe consistent with expected evolution of the left [employer]RE[employer] BUILDING DECOR[employer] territory infarct. The left medial temporal lobe intracranial hemorrhage is also similar to the prior study and measures approximately 2.1 x 1.6 cm. No new areas of intracranial hemorrhage identified. The ventricles are stable in size. Mild mass effect within the left temporal lobe remains unchanged. No midline shift. Impression: No significant change in the small left medial temporal lobe intracranial hematoma with an associated evolving left STREET [employer] BUILDING DECORATOR territory infarct. ACT 112: Negative or not required by law. Electronically signed by: Shekhar Lou M.D. 09/10/2022 1:43 PM PG Care Time/CCT Total # of Minutes Spent Total Time Spent with Patient: Total time spent is greater than 50% in coordination of care (as documented) at patient's floor/unit and/or counseling patient: Coding Level of Care Code 26827 Subseq Hosp Care Lvl 3 Diagnoses Acute CVA (cerebrovascular accident) I63.9 Vision changes H53.9 Intracranial hemorrhage I62.9 Atrial flutter I48.92 Sleep apnea G47.30 Peripheral vascular disease I73.9 Hypertension I10 Hyperlipidemia E78.5 Gout M10.9 Status post femoral-popliteal bypass surgery Z95.828
[2022-09-10] MEDS: TERAZOSIN HCL 5 MG CAP PO SCH (20:00)
[2022-09-11] MEDS: SODIUM CHLORIDE 0.9% 1000ML 1,000 ML IV SCH (06:17)
[2022-09-11 06:53] LABS: Basophils # (auto) 0.03 K/uL (0-0.2); Basophils % (auto) 0.6 %; Eosinophils # (auto) 0.39 K/uL (0-0.50); Eosinophils % (auto) 7.5 %; Hematocrit (blood only) 36.5 % (40.1-51.0); Hemoglobin 12.2 g/dl (14.0-18.0); Immature Granulocytes # (auto) 0.01 K/uL (0.00-0.02); Immature Granulocytes % (auto) 0.2 %; Lymphocytes # (auto) 0.72 K/uL (1.2-3.4); Lymphocytes % (auto) 13.8 %; Mean Corpuscular Hgb Conc 33.4 g/dL (32.0-36.0); Mean Corpuscular Volume 92.6 fL (80.0-100.0); Mean Platelet Volume 9.3 fL (9.4-12.4); Monocytes # (auto) 0.58 K/uL (0.24-0.82); Monocytes % (auto) 11.2 %; Neutrophils # (auto) 3.47 K/uL (1.4-6.5); Neutrophils % (auto) 66.7 %; Platelet Count 237 K/uL (130-400); RDW Coefficient of Variation 12.8 % (11.5-14.5); RDW Standard Deviation 43.5 fL (36.4-46.3); Red Blood Count 3.94 M/uL (4.63-6.08)
[2022-09-11 07:32] LABS: BUN Creatinine Ratio 17.9 (10-20); Calcium 8.7 mg/dl (8.5-10.1); Creatinine Clr Calc Pharmacy 100.7 ml/min; Est GFR (African American) 106.7 ml/min; Potassium 3.9 mmol/L (3.5-5.1)
[2022-09-11] MEDS ORDERED: POTASSIUM CHLORIDE 10 MEQ TABCR PO STA (08:05)
[2022-09-11] MEDS: METOPROLOL TARTRATE 25 MG TAB PO SCH (08:19)
[2022-09-11] MEDS: PANTOprazole 40 MG TAB PO SCH (08:19)
--- NOTE | 2022-09-11 08:19 | CT Scan Report ---
CT OF THE HEAD WITHOUT CONTRAST CLINICAL HISTORY: reassess ICH COMPARISON STUDY: MRI of the brain September 09, 2022. Head CT September 10, 2022. CT DOSE: 823.94 mGycm TECHNIQUE: Helical axial images of the head were obtained without IV contrast. Automated exposure con trol was utilized for the study. A dose lowering technique was utilized adhering to the principles o f ALARA. FINDINGS: There has been no significant change since exam of September 10, 2022. Note is again made of an infarct within the left temporal and occipital lobes with a stable focus of hemorrhage which measu res 2.1 x 2 cm. Mild mass effect is unchanged. Ventricular system is stable. No new sites of hemorrha ge are present. There is no midline shift. There is mild sinus mucosal thickening. IMPRESSION: No change in the left temporooccipital infarct with associated focus of hemorrhage which measures 2.1 x 2 cm. ACT 112: Negative or not required by law. Electronically signed by: Gerson Nichols M.D. 09/11/2022 8:17 AM
[2022-09-11] MEDS: allopurinoL 100 MG TAB PO SCH (08:20)
[2022-09-11] MEDS ORDERED: ATORVASTATIN 20 MG TAB PO SCH (09:00)
--- NOTE | 2022-09-11 09:03 | Pharmacy Report ---
- Date of Service September 11, 2022 - Pharmacy CVA/TIA Medication Review Medications to Prevent Stroke handout has been added to the patients discharge packet. Antiplatelet(s) * Holding currently in light of hemorrhagic stroke * Clopidogrel will be discontinued in favor of initiation of therapeutic antico agulation Cholesterol * High intensity statin deferred due to age >75 and intracranial hemorrhage * Atorvastatin 20 mg PO daily recommended by neurology DVT Prophylaxis * SCD knee * Pharmacologic DVT prophylaxis deferred due to hemorrhage Therapeutic Anticoagulation * Aflutter noted with concern that stroke was cardioembolic in nature * Holding therapeutic anticoagulation at this time, but DOAC recommended by cardiology once safe to restart * Eliquis to be started once follow-up outpatient CT scan shows stability/re solution of hemorrhage Type 2 Diabetes * Patient does not have T2DM
--- NOTE | 2022-09-11 12:20 | Neurology Progress Note ---
Date of Service September 11, 2022 Assessment & Plan (1) Hemorrhagic stroke: Plan Left temporal occipital infarct with associated hemorrhagic focus, has been radiographically stable. Patient has been clinically stable as well, no specific or focal neurologic deficits. No vision loss, aphasia, or hemiparesis. Stroke likely cardioembolic given atrial flutter, dilated left atrium, cardiology consultation impression noted as well with recommendation for either Eliquis or Xarelto, rather than clopidogrel going forward, start time deferred to neurology, however, assuming stability of the intracranial hemorrhage. At this point, patient may resume Plavix 75 mg/day (with intention to switch to Eliquis or Xarelto as below) I would like him to have a follow-up CT of the head completed in 1 week. If his hemorrhage is stable at that time, may discontinue Plavix and start Eliquis. However, I would like his anticoagulant to be managed by cardiology given his a flutter and peripheral vascular disease. Admission and Anticipated Discharge Date Admission Date: September 09, 2022 Subjective Follow-up for hemorrhagic stroke Patient continues to deny any specific neurologic symptoms such as vision loss, change in speech, vertigo, or focal weakness. A follow-up CT of the head completed this morning continues to suggest stability of the left temporal occip ital stroke with associated hemorrhagic focus. Patient stroke likely cardioembolic. Cardiology consultation from September 09 again reviewed. Recommendation was to go with Xarelto or Eliquis but with timing of starting anticoagulation left to neurology. If patient were on an anticoagulant, would not require an antiplatelet medication. Review of Systems Eyes: no blind spots and no diplopia Neurologic: no gait abnormality, no localized weakness, no loss of sensation, no headache(s) and no confusion Results & Data ([facility]) Vital Signs (Past 12 Hours) Vital Signs Temp Pulse Pulse Resp BP Pulse Ox O2 Del Method 09/11/22 10:45 36.6 C 53 L 20 108/64 96 Room Air 09/11/22 07:40 68 09/11/22 07:27 36.6 C 79 20 148/71 H 95 Room Air 09/11/22 03:58 37.4 C 73 18 138/69 95 CPAP 09/11/22 02:23 22 Laboratory Results WBC 5.20, hemoglobin 12.2, hematocrit 36.5, platelet count 237, sodium 140, potassium 3.9, BUN 12, creatinine 0.67, glucose 94, magnesium 2.[address] of the head reveals no change in the previous identified left temporal occipital infarct with hemorrhagic focus measuring about 2 x 2 cm in size. I independently reviewed these images along with the radiology report. Exam (Neuro) Neurologic: Oriented to:: Person, Place and Time Attention: Span Intact and Concentration Intact Speech Fluency: negative Dysarthria or Dysfluency Fund of Knowledge: Current Events, Past History and Vocabulary Cranial Nerves: Normal II, III, IV, , V, VII, VIII, IX, X, XI and XII Motor Strength: Normal Lower Extremities and Normal Upper Extremities Muscle Bulk/Involuntary Movements: No Involuntary Movements; negative Muscle Atrophy Coordination: Normal Gait: Normal Station and Gait Coding Level of Care Code 15332 Subseq Hosp Care Lvl 2 Diagnoses Hemorrhagic stroke I61.9
[2022-09-11] MEDS ORDERED: STROKE PATIENT DISCHARGE STA (12:44)
--- NOTE | 2022-09-11 12:46 | Discharge Summary ---
Date of Service September 11, 2022 Admission HPI Per Admitting Provider Jack San is a 76-year-old male with a past medical history of hypertension, anemia, peripheral vascular disease, cardiac murmur, sleep apnea, hyperlipidemia, gout who presented with headache and vision change since 8:00 in the morning. Patient had a left frontal headache chills at 8:00 when he was working with computer and had slowly progressive vision changes patient could return his vision to normal by resting his eyes or concentrating very high. COVID 10 days ago. Woke up at 5am feeling normal, 8am working on his computer from home developed L sided dull headache in the front/L side followed by some blurry vision in that eye but noted had difficulty with L eye RIGHT FIELD loss looking at the clock, then with bilateral eye RIGHT FIELD loss which improved with intense focus and resting his eyes[facility], no acuity change. Hx of cataract surgery without issues. No hx migraines, no problems with headaches. Laid down and rested, headache and vision change persisted. No recent trauma/head injury. Day 10 of COVID. No symptoms for 5 days. No shortness of breath, ches tpain, cough, sinus pain, dizziness, lightheadedness, blaance change, sensory change, or weakness. HTN in ER. At bedside vision 50-80% back to normal. No ches tpain. No chest pressure. Headache is 80% gone. No lightheadedness/dizziness. No fever/chills/sweats/diarrhea/constipation/abdominal pain Medical History: Reviewed Medications: Reviewed Surgical History: Reviewed Allergies: Reviewed Social History: 2 packs/day x 20 years, former smoker quit 1977. No etoh. Code Status:Full Principal Diagnosis Acute ischemic CVA with hemorrhagic conversion Discharge Exam Constitutional WD/WN, vitals as above Eyes PERRL, conjunctivae normal, anicteric sclerae EOM intact bilaterally; no anisocoria and no nystagmus ENMT external ear and nose normal, oropharynx normal Neck trachea midline, no thyromegaly Respiratory normal respiratory effort, lungs clear to auscultation Cardiovascular RRR, no murmur, no edema Chest (Breasts) Chest: normal inspection of chest Gastrointestinal (Abdomen) normal bowel sounds, soft, nontender, no hepatosplenomegaly Musculoskeletal Extremities: extremities normal to inspection; no cyanosis and no clubbing Skin no rashes, warm and dry Neurologic moves all extremities and awake; no focal motor deficits Speech / Cognition: normal speech Motor/Sensory: no tremor, no pronator drift and no sensory deficit Psychiatric A+Ox3, euthymic affect Lymphatic no lymphedema Discharge Data Allergies Allergy/AdvReac Type Severity Reaction Status Date / Time latex AdvReac Rash Verified 09/18/22 11:27 Consultations 09/08/22 18:09 ED Decision to Admit Stat 09/08/22 22:57 Consult Cardiology Routine 09/09/22 08:16 Consult Neurology Routine Ordered Studies 09/08/22 15:29 CT angio head w con Stat CT angio neck with con Stat CT head/brain wo con Stat 09/09/22 00:27 MR brain wo con Routine 09/09/22 12:00 CT head/brain wo con Routine 09/09/22 17:00 CT head/brain wo con Routine 09/10/22 08:00 CT head/brain wo con Routine 09/11/22 08:00 CT head/brain wo con Routine Hospital Course (1) Acute CVA (cerebrovascular accident): large 8.5 cm left temporal occipital region and now with hemorrhagic conversion 1.9 -2.1 cm centrally No encephalopathy or concern otherwise for HSV encephalitis as per my d/w Neuro, no need for LP Was in new onset A-flutter on admission which makes CVA likely cardioembolic Does have known PAD, HTN CTA head/neck only with severe stenosis left vertebral artery near origin serial CT head without evidence of expansion Neuro deficits improving No altered mentation -followed serial CT for hemorrhage-remained stable on multiple repeat CT head here---> plan to repeat head CT in 1 week as an outpatient as per Neuro -appreciate Neuro consult -keep BP between 140-160 systolic for now -checked ECHO-neg bubble study, no thrombus, preserved EF, mild Pulm HTN -monitored on tele-remained in sinus rhythm the rest of his stay--> discussed with Cardiology and plan for flutter ablation in a few weeks -avoid anticoagulation and hold home Plavix until after repeat head CT in 1 week as an outpt remains stable/improved-I did discuss this with his Vascular Surgeon who said this was fine to hold -checked lipids-good, continue statin but reduced dose due to increased risk of bleeding with high intensity statin and has ICH -HgbA1C normal 5.4% -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 serial CT head as above unchanged (4) Atrial flutter: Aflutter with variable block, rate controlled, now in sinus New, patient with no history of A. fib/a flutter -holding AC due to ICH as above - Cardiology [id number] for A-flutter ablation in a few weeks Echo as above - started on metoprolol 25mg tartrate BID PO but Cardiology recommended stopping on discharge (5) Sleep apnea: continue CPAP hs (6) Peripheral vascular disease: holding home Plavix for ICH continue statin has a fem-pop bypass -as above, I d/w Vascular and ok to continue holding Plavix until after next CT head in 1 week and then stop once goes on Eliquis (7) Hypertension: BPs stable, keep between 140-160 due to ICH and acute CVA initially started on metoprolol here but not necessary on discharge as per Cardiology continue hytrin (8) Hyperlipidemia: changed to moderate intensity atorvastatin (9) Gout: Continue allopurinol (10) Status post femoral-popliteal bypass surgery: as above Plan DVT proph- SCDs Dispo-doing well, stable for dc to home Total Time Total Time Spent Total Time Spent (In Minutes): 60 min Total Time Includes: Examination of the Patient, Discharge Planning, Medication Reconciliation and Communication With Other Providers (Cardiology, Neurology, Vascular Surgery) Discharge Plan Discharge Items Patient Disposition: Home - Self-Care Reason For Visit: VISION LOSS, ?CVA, NEW AFLUTTER Discharge Diagnosis: Acute ischemic CVA with hemorrhagic conversion, Atrial flutter Condition on Discharge: Good Activity: As commented below Bathing: No limitations Sexual Activity: Wait until after follow-up appointment Exercise/Sports: Gradually increase as tolerated Exercise Comment: Remain out of work for at least 2-3 weeks Weightbearing: Full weightbearing Non-emergency contact: Primary Care Provider, Buildings And Grounds Director and Neurologist Call non-emergency contact if: you have any medication questions and your symptoms worsen Follow-up/Referrals: Hans Goodwin MD [Physician] - 10/06/22 8:30 am (will see Angela Estrada PA-C) Jung Gaona MD [Primary Care Provider] - (Follow up within 1-2 weeks) Jovanni Beckett MD [Physician] - (Dr. Beckett's office will contact you w ith your appointment date and time for Cardiology.) Diet: Heart Healthy Addtl Attending Provider Instructions: You were admitted with a stroke caused by a blood clot but then had bleeding inside the stroke. Your Plavix will be STOPPED for now and after the bleeding is cleared out of your head, the Buildings And Grounds Director will start you the blood thinner called Eliquis for the atrial flutter to prevent future strokes. Dr. Beckett the Buildings And Grounds Director will talk to you about performing an ablation to get rid of your abnormal heart rhythm that caused your stroke. Please have a head CT scan done in one week to assess the bleeding. The nurse navigator will be arranging this for you and will let you know the appointment date and time. You can take Tylenol as needed for mild headaches but if your headache worsens significantly, or if you have confusion, lethargy, or any other acute concerns, please return to the hospital right away. You should NOT be driving and will need an Ophthalmology appointment to have formal visual field testing to see if you have residual blind spots. Risk Factors for Stroke: You can reduce your chances of stroke by working with your medical provider to adopt a healthy lifestyle. Some specific ways to lower your chance of stroke are: * If you are a smoker, now is the time to stop smoking cigarettes * If you are diabetic, improve the control of your blood sugars * Avoid excessive amounts of alcohol * Control high blood pressure * Lose weight if you are overweight * Be sure to lead an active lifestyle * Eat a healthy diet low in salt, cholesterol and fat You should know about other risk factors for stroke that you are unable to control. These include: * Age 55 years or older * Male gender * Certain racial groups: , or / * Family History of Stroke, Mini stroke or Heart Attack * Sickle Cell Disease Follow Up: It is important for you to keep your follow up appointments with your medical provider. Who to Call and When: Medical Emergencies: Call 911 immediately if you experience any of the foll owing warning signs and symptoms of Stroke: * Sudden numbness or weakness of the face, arm or leg, especially on one side of the body * Sudden confusion, trouble speaking or understanding * Sudden trouble seeing in one or both eyes * Sudden trouble walking, dizziness, loss of balance or coordination * Sudden severe headache with no cause Do not delay calling 911 if you experience any warning signs or symptoms of a stroke. Delay in seeking medical attention may affect what treatments can be given to you. . Pending Studies at Discharge: No Stand-Alone Forms: [facility] Electronic Payment and Services (EPS), Smoking Cessation, Medications to Prevent Stroke Medications and DC Order Prescriptions: New acetaminophen 325 mg Tablet 650 mg PO Q4H PRN (Reason: pain) Qty: 30 0RF Rx Instructions: OTC atorvastatin 20 mg Tablet 20 mg PO QAM Qty: 30 0RF Eliquis 5 mg tablet 5 mg PO BID Qty: 60 0RF Hold Instructions: per cardio Rx Instructions: DO NOT START TAKING UNTIL YOUR DOCTOR TELLS YOU TO Continued allopurinol 100 mg tablet 100 mg PO QAM Qty: 90 3RF cholecalciferol (vitamin D3) [Vitamin D3] 1,000 unit Tablet 1,000 unit PO BID biotin 5,000 mcg Tablet,Disintegrating 1 tab PO QAM Discontinued simvastatin 10 mg tablet 10 mg PO PM Qty: 90 3RF clopidogrel 75 mg tablet 75 mg PO QAM Qty: 90 1RF No Action terazosin 5 mg capsule 5 mg PO QPM Qty: 90 1RF Discharge Orders: Discharge Order (Routine); Ordered 09/11/22 Ordered By: Natty Ortega Admission Data Admit Date/Time: 09/09/22 18:21 Attending Provider: Natty Ortega Admit Provider: Guy Jackson Primary Care Provider: Jung Gaona Other Providers: Hans Goodwin ; Jovanni Beckett Other Interventions: Discharge Summary Assessment (RN) Last Done: 09/11/22 12:48 Coding Level of Care Code D/C DAY MANAGEMENT >30 MINS Diagnoses Acute CVA (cerebrovascular accident) I63.9 Vision changes H53.9 Intracranial hemorrhage I62.9 Atrial flutter I48.92 Sleep apnea G47.30 Peripheral vascular disease I73.9 Hypertension I10 Hyperlipidemia E78.5 Gout M10.9 Status post femoral-popliteal bypass surgery Z95.828
--- NOTE | 2022-09-12 09:38 | Pharmacy Report ---
Pharmacist Stroke Counseling - Date of Service September 12, 2022 - Scope: Pharmacy has been consulted to provide medication discharge counseling for this patient admitted with ischemic stroke w/ hemorrhagic conversion as per the Pharmacist Discharge Counseling for Stroke Patients Protocol. - Medications on Discharge: Home Medications Medication Instructions Recorded Confirmed biotin 5,000 mcg disintegrating 1 tab PO QAM 10/15/18 09/08/22 tablet cholecalciferol (vitamin D3) 25 1,000 unit PO BID 10/15/18 09/08/22 mcg (1,000 unit) tablet (Vitamin D3) New Rx's Medication Instructions Recorded terazosin 5 mg capsule 5 mg PO QPM #90 caps 09/05/21 allopurinol 100 mg tablet 100 mg PO QAM #90 tabs 12/05/21 acetaminophen 325 mg tablet 650 mg PO Q4H PRN pain #30 tabs 09/11/22 apixaban 5 mg tablet (Eliquis) 5 mg PO BID #60 tabs 09/11/22 atorvastatin 20 mg tablet 20 mg PO QAM #30 tabs 09/11/22 - Action: The above medications, specifically ones for stroke treatment/prophylaxis, have been reviewed in detail with the patient and/or patient sales representative advertising(s) prior to discharge. This includes indication, common adverse reactions, drug interactions, and medication administration. Medication counseling has been employed using the teach-back method to ensure understanding. - Outcome: The patient and/or patient sales representative advertising(s) have demonstrated understanding of the medications. 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 - He confirmed that he has stopped simvastatin and clopidogrel. He also noted that he had a new prescription for Eliquis, but he was aware that was on hold until further guidance after follow-up CT scan. - He has no concerns and understands medication changes. He will call provided number if he does have any questions in the future. Thank you for allowing pharmacy to be involved in the care of this patient. Please call [phone] with any additional questions
== END 2022-09-11 14:08 | disposition home or self-care (01) | DRG 64 ==
LOC: 2E 15:04 → ED 15:04 → SUATTDRO 18:12 → 2E 21:56
DX: Z91.040 Latex allergy status; M10.9 Gout, unspecified; R29.701 NIHSS score 1; I61.1 Nontraumatic intracerebral hemorrhage in hemisphere, cortical; G47.30 Sleep apnea, unspecified; Z87.891 Personal history of nicotine dependence; I48.92 Unspecified atrial flutter; I73.9 Peripheral vascular disease, unspecified; U07.1 COVID-19; G93.6 Cerebral edema; Z79.02 Long term (current) use of antithrombotics/antiplatelets; H53.8 Other visual disturbances; I10 Essential (primary) hypertension; E78.5 Hyperlipidemia, unspecified; Z79.899 Other long term (current) drug therapy; I63.49 Cerebral infarction due to embolism of other cerebral artery; I65.02 Occlusion and stenosis of left vertebral artery; I44.30 Unspecified atrioventricular block; I35.8 Other nonrheumatic aortic valve disorders